=== PATIENT | female | born 1975 | race Caucasian/White ===

== ENCOUNTER 2016-06-12 11:21 | Emergency (ER) ==
[2016-06-12 11:33] VITALS: BP 136/82; TEMP 97.7; BMI 31.1
--- NOTE | 2016-06-12 11:37 | ED.PDOC ---
General ED Provider: Dr. TOMMY DOMÍNGUEZ JR Chief Complaint: Respiratory Complaint Stated Complaint: WOKE UP THIS MORNING COULD NOT BREATH, WAS WHEEZING. TOOK A HOT SHOWER CLOSED EYES TO WASH HAIR ROOM STARTED TO SPIN, FELL IN THE SHOWER. LANDED ON RIGHT RIB. TENDER TO TOUCH.[End]0900 97.7 88 24 98% 136/82 Time Seen by Physician: 11:36 Mode of Arrival: Walk-In Information Source: Patient, Family Exam Limitations: No limitations Primary Care Provider: MARIANNE PERRIN Nursing and Triage Documentation Reviewed and Agree: No Review of Systems - Review Of Systems Constitutional: Reports: No symptoms Eyes: Reports: No symptoms Ears, Nose, Mouth, Throat: Reports: No symptoms Respiratory: Reports: Wheezing Cardiac: Reports: Lightheadedness GI: Reports: No symptoms : Reports: No symptoms Musculoskeletal: Reports: Other Skin: Reports: No symptoms Neurological: Reports: Weakness (vertigo) Endocrine: Reports: No symptoms Hematologic/Lymphatic: Reports: No symptoms All Other Systems: Other Past Medical History - Past Medical History Previously Healthy: Yes Endocrine: Reports: None Cardiovascular: Reports: CAD, [place], Hypertension Respiratory: Reports: Asthma Hematological: Reports: None Gastrointestinal: Reports: None Genitourinary: Reports: None Neuro/Psych: Reports: Migraine, Anxiety, Depression Musculoskeletal: Reports: Arthritis, Back Pain, Joint Pain Cancer: Reports: None Last Menstrual Period: 2007 Other Pertinent Past Medical History: PRINZEMETALS - Surgical History General Surgical History: Reports: Hysterectomy (2007), Cholecystectomy, Tonsillectomy, Adenoidectomy, Orthopedic (LEFT ANKLE RESTABALIZATION) - Family History Family History: Reports: Unknown - Social History Smoking Status: Former smoker Hx Substance Use: No Alcohol Screening: None - Immunizations Tetanus Shot up to Date: Yes Physical Exam - Physical Exam Appearance: Ill-appearing, Thin Ill-appearing: Mild Pain Distress: Mild Eyes: [place], EOMI, Conjunctiva clear ENT: Ears normal, Nose normal, Oropharynx normal Neck: Supple Respiratory: Airway patent, Rhonchi, Wheezes Cardiovascular: RRR, Pulses normal, No rub, No murmur GI/: Soft, Nontender, No masses, Bowel sounds normal, No Organomegaly Musculoskeletal: Normal strength, ROM intact, No edema, No calf tenderness Skin: Warm, Dry, Normal color Neurological: Sensation intact, Motor intact, Reflexes intact, Cranial nerves intact, Alert, Oriented Psychiatric: Affect appropriate, Mood appropriate Interpretation - Radiology Interpretation Radiology Interpretation By: Radiologist Radiology Results: Negative Exam Interpreted: CXR, Other (ribs) Critical Care Note - Critical Care Note Total Time (mins): 5 Course - Course Orders, Labs, Meds: Orders Category Date Time Status NEBULIZER TREATMENT Stat CARDIO 06/12/16 11:47 Ordered PEAK FLOW Routine CARDIO 06/12/16 11:48 Ordered Ipratropium/Albuterol Neb [Duoneb] MEDS 06/12/16 11:47 Discontinued 1 vial NEB ONCE STA Methylprednisolone Sod Succ/Pf [Solu-Medrol 125 mg] MEDS 06/12/16 11:49 Discontinued 125 mg .ROUTE .STK-MED ONE Methylprednisolone Sod Succ/Pf [Solu-Medrol 125 mg] MEDS 06/12/16 11:47 Discontinued 125 mg IM ONCE STA CHEST, 2 VIEWS PA & LAT Stat RADS 06/12/16 11:38 Completed RIBS, UNILATERAL RIGHT Stat RADS 06/12/16 11:41 Completed Medications Discontinued Medications Generic Name Dose Route Start Last Admin Trade Name Diego PRN Reason Stop Dose Admin Albuterol/Ipratropium 1 vial 06/12/16 11:47 Duoneb NEB 06/12/16 11:48 ONCE STA Methylprednisolone Sodium Succinate 125 mg 06/12/16 11:47 06/12/16 11:53 Solu-Medrol 125 Mg IM 06/12/16 11:48 125 mg ONCE STA Administration Vital Signs: Temp Pulse Resp BP Pulse Ox 06/12/16 11:23 97.7 F 88 24 136/82 98 Departure - Departure Time of Disposition: 12:20 Disposition: HOME SELF-CARE Discharge Problem: COPD exacerbation Instructions: COPD (Chronic Obstructive Pulmonary Disease) (ED) Condition: Good Pt referred to PMD for follow-up: Yes Additional Instructions: recommend check peak flows daily you were given solumedrol injection atrovent MDI twice a day in addition to albuterol(use albuterol first) follow up with PMD recheck one week, sooner if not resolved Prescriptions: Ipratropium [place] [Atrovent Hfa] 2 puff IH BID #1 hfa.aer.ad Allergies/Adverse Reactions: Allergies ceftriaxone sodium [From Rocephin] Adverse Reaction (Verified 06/12/16 11:36) ITCHY, SWELLING, BREATHING PROBLEMS Home Medications: Ambulatory Orders Gabapentin [Neurontin] 300 mg PO DAILY 11/21/12 Budesonide/Formoterol Fumarate [Symbicort 80-4.5 Mcg Inhaler] 10.2 gm IH BID #7 hfa.aer.ad 01/12/15 Albuterol Sulfate [Proventil Hfa] 6.7 gm IH QID PRN #1 hfa.aer.ad 10/12/15 Cetirizine HCl [Zyrtec] 10 mg PO DAILY 12/13/15 Ipratropium [place] [Atrovent Hfa] 2 puff IH BID #1 hfa.aer.ad 06/12/16
[2016-06-12] MEDS ORDERED: DUONEB NEB STA (11:47)
[2016-06-12] MEDS ORDERED: SOLU-MEDROL 125 MG IM STA (11:47)
[2016-06-12] MEDS ORDERED: SOLU-MEDROL 125 MG ONE (11:49)
--- NOTE | 2016-06-12 12:00 | DI ---
EXAM: Radiographs, right rib HISTORY: Initial presentation for right 10-11 lateral rib pain following a fall. COMPARISON: Chest radiograph 05/16/2016. TECHNIQUE: Three views. FINDINGS/IMPRESSION: No right rib fracture identified. Right lung is clear without pleural effusion or pneumothorax.
--- NOTE | 2016-06-12 12:00 | DI ---
EXAM: Chest two view, frontal and lateral views. HISTORY: Shortness of breath. Wheezing. COMPARISON: 05/16/2016. FINDINGS: The heart size is normal. There is no pulmonary vascular congestion. The lungs are ze r. No pleural effusion or pneumothorax is seen. No acute osseous abnormality identified. Cholecys tectomy clips noted. Since the prior study, there has been no significant interval change. IMPRESSION: No acute cardiopulmonary process.
== END 2016-06-12 12:42 | disposition home or self-care (01) ==
LOC: ED 11:21
DX: J44.1 Chronic obstructive pulmonary disease with (acute) exacerbation (principal); S29.9XXA Unspecified injury of thorax, initial encounter; W19.XXXA Unspecified fall, initial encounter; Y93.E1 Activity, personal bathing and showering; Y92.9 Unspecified place or not applicable
CPT/HCPCS: 94250; 94640; 96372; 99282

== ENCOUNTER 2016-06-25 15:27 | Emergency (ER) ==
[2016-06-25] MEDS ORDERED: DUONEB NEB STA ×2 (15:30→16:06)
[2016-06-25] MEDS ORDERED: SOLU-MEDROL 125 MG IVP STA (15:30)
[2016-06-25] MEDS ORDERED: DUONEB NEB ONE (15:32)
[2016-06-25 15:34] VITALS: BP 156/115; TEMP 99; BMI 32.0
[2016-06-25 15:37] LABS: BASOPHILS % (AUTO) 0.4 % (0.0-3.0); EOSINOPHILS # (AUTO) 0.3 K/ul (0.0-0.7); EOSINOPHILS % (AUTO) 3.3 % (0.0-7.0); HEMATOCRIT 43.5 % (37.0-47.0); HEMOGLOBIN 15.3 g/dl (12.0-16.0); IMMATURE GRANULOCYTE % (AUTO) 0.2 % (0.0-5.0); LYMPHOCYTES # (AUTO) 2.8 K/uL (0.60-3.4); LYMPHOCYTES % (AUTO) 28.4 (10.0-50.0); MEAN CORPUSCULAR HEMOGLOBIN 32.3 pg (27.0-31.0); MEAN CORPUSCULAR HGB CONC 35.2 (31.8-35.4); MONOCYTES # (AUTO) 0.5 K/uL (0.4-2.0); MONOCYTES % (AUTO) 4.8 (0-10); NEUTROPHILS # (AUTO) 6.3 K/ul (2.0-6.9); NEUTROPHILS % (AUTO) 62.9; PLATELET COUNT 254 10^3/uL (140-440); RED BLOOD COUNT 4.73 10^6/ul (4.20-5.40)
--- NOTE | 2016-06-25 16:03 | DI ---
EXAM: Chest one view HISTORY: Short of air COMPARISON: 06/12/2016 TECHNIQUE: Single view of the chest was performed FINDINGS: The lungs are clear. There is no pleural effusion or pneumothorax. The heart is normal in size. The mediastinal contour is normal. There are no acute abnormalities of the bones. IMPRESSION: No acute cardiopulmonary process.
[2016-06-25 16:04] LABS: ALANINE AMINOTRANSFERASE 16 U/L (12-78); ALBUMIN 3.9 g/dL (3.4-5.0); ALKALINE PHOSPHATASE 88 U/L (42-98); ASPARTATE AMINO TRANSFERASE 17 U/L (15-37); BILIRUBIN,TOTAL 0.32 mg/dL (0.00-1.20); BLOOD UREA NITROGEN 17 mg/dL (7-18); BUN/CREATININE RATIO 20.98; CALCIUM 9.2 mg/dL (8.2-10.2); CARBON DIOXIDE 25 mmol/L (21-32); CHLORIDE 108 mmol/L (98-107); CREATINE KINASE 19 U/L; CREATININE 0.81 mg/dL (0.60-1.30); GLUCOSE 107 mg/dL (70-110); SODIUM 142 mmol/L (136-145); TOTAL PROTEIN 6.9 g/dL (6.4-8.2)
[2016-06-25 17:17] LABS: FLU INTERNAL QC INTERNAL QC VALID; RAPID FLU A NEGATIVE (NEGATIVE); RAPID FLU B NEGATIVE (NEGATIVE)
--- NOTE | 2016-06-25 17:34 | ED.PDOC ---
General ED Provider: Dr. IRAIS DUNLAP Chief Complaint: Respiratory Complaint Stated Complaint: cough, wheez Time Seen by Physician: 15:33 (has had amoxicllin with no issues in the past) Mode of Arrival: Walk-In Information Source: Patient Exam Limitations: No limitations Primary Care Provider: MARIANNE PERRIN Nursing and Triage Documentation Reviewed and Agree: Yes Respiratory Complaint Exam - Respiratory Complaint/Exam Onset/Duration: 1 day Symptoms Are: Still present Timing: Intermittent Initial Severity: Moderate Current Severity: Mild Location: Chest Character: Reports: Non-productive cough Aggravating: Reports: None Alleviating: Reports: Bronchodilators, Spontaneous resolution Associated Signs and Symptoms: Denies: Rapid breathing, Dyspnea, Fever, Chills, Chest pain, Pleuritic chest pain, Wheezing, Hemoptysis, Dizziness, Calf pain, Calf swelling, Edema, URI, Nasal congestion, Hoarseness, Sinus discomfort, Vomiting, Sore throat, Weight loss, Decreased oral intake, Increased thirst, Increased appetite, Increased urination Related History: Reports: Similar episode History of Healthcare-Acquired Pneumonia: No Related Surgical History: Reports: None Pulmonary Embolism Risk Factors: None Cardiac Risk Factors: Reports: Hypertension Pseudomonas Risk Factors: Reports: None Tuberculosis Risk Factors: Reports: None Status Asthmaticus Risk Factors: Reports: None Home Oxygen Use: No Recent Stress Test: No Recent Echo/LV Function: No Current Antibiotic Use: No Current Asthma Medication Use: No Respiratory Distress: None Inadequate Respiratory Effort: No Dysphagia Present: No Stridor Present: No JVD Present: No Accessory Muscle Use: No Retractions: Not Present Diminished Breath Sounds: No Sinus Tenderness: None Grunting Respirations: No Kussmaul Respirations: No Differential Diagnoses: COPD Exacerbation, Pneumonia, Bronchitis Review of Systems - Review Of Systems Constitutional: Reports: No symptoms Eyes: Reports: No symptoms Ears, Nose, Mouth, Throat: Reports: No symptoms Respiratory: Reports: Cough, Wheezing Cardiac: Reports: No symptoms GI: Reports: No symptoms : Reports: No symptoms Musculoskeletal: Reports: No symptoms Skin: Reports: No symptoms Neurological: Reports: No symptoms Endocrine: Reports: No symptoms Hematologic/Lymphatic: Reports: No symptoms All Other Systems: Reviewed and Negative Past Medical History - Past Medical History Previously Healthy: Yes Endocrine: Reports: None Cardiovascular: Reports: CAD, [place], Hypertension Respiratory: Reports: Asthma Hematological: Reports: None Gastrointestinal: Reports: None Genitourinary: Reports: None Neuro/Psych: Reports: Migraine, Anxiety, Depression Musculoskeletal: Reports: Arthritis, Back Pain, Joint Pain Cancer: Reports: None Last Menstrual Period: 2007 Other Pertinent Past Medical History: PRINZEMETALS - Surgical History General Surgical History: Reports: Hysterectomy (2007), Cholecystectomy, Tonsillectomy, Adenoidectomy, Orthopedic (LEFT ANKLE RESTABALIZATION) - Family History Family History: Reports: Unknown - Social History Smoking Status: Former smoker Hx Substance Use: No Alcohol Screening: None - Immunizations Tetanus Shot up to Date: Yes Physical Exam - Physical Exam Appearance: Well-appearing, No pain distress, Well-nourished Eyes: [place], EOMI, Conjunctiva clear ENT: Ears normal, Nose normal, Oropharynx normal Respiratory: Wheezes Cardiovascular: RRR, Pulses normal, No rub, No murmur GI/: Soft, Nontender, No masses, Bowel sounds normal, No Organomegaly Musculoskeletal: Normal strength, ROM intact, No edema, No calf tenderness Skin: Warm, Dry, Normal color Neurological: Sensation intact, Motor intact, Reflexes intact, Cranial nerves intact, Alert, Oriented Psychiatric: Affect appropriate, Mood appropriate Interpretation - Radiology Interpretation Radiology Interpretation By: Radiologist Radiology Results: No acute changes - Income Tax Consultant Rate: Normal Rhythm: Sinus - EKG Interpretation Rate: Normal Rhythm: Sinus Ectopy: None [place]: NL ST Segment: Normal Re-Evaluation - Re-Evaluation Time of Re-Evaluation: 16:00 Status: Improved Vital Signs Stable: Yes Pain Level: 0 Appearance: NAD Lungs: Clear Skin: Warm and Dry Neuro: Alert and Oriented X3 CV: RRR - Re-Evaluation Time of Re-Evaluation: 17:34 Status: Improved Vital Signs Stable: Yes Pain Level: 0 Appearance: NAD Skin: Warm and Dry Neuro: Alert and Oriented X3 CV: RRR (no further wheezing noted pt eager to go home) Critical Care Note - Critical Care Note Total Time (mins): 0 Course - Course Hematology/Chemistry: 06/25/16 15:35 06/25/16 15:35 Orders, Labs, Meds: Lab Review 06/25/16 06/25/16 15:35 16:20 WBC 10.00 RBC 4.73 Hgb 15.3 Hct 43.5 MCV 92.0 MCH 32.3 H MCHC 35.2 RDW Coeff of Gregorio 12.4 Plt Count 254 Immature Gran % (Auto) 0.2 Neut % (Auto) 62.9 Lymph % (Auto) 28.4 [place] % (Auto) 4.8 Eos % (Auto) 3.3 Baso % (Auto) 0.4 Immature Gran # (Auto) 0.0 Neut # 6.3 Lymph # 2.8 [place] # 0.5 Eos # 0.3 Baso # 0.0 D-Dimer < 0.19 L Sodium 142 Potassium 4.0 Chloride 108 H Carbon Dioxide 25 Anion Gap 13.0 BUN 17 Creatinine 0.81 Estimated GFR (MDRD) 79.00 BUN/Creatinine Ratio 20.98 Glucose 107 Calcium 9.2 Total Bilirubin 0.32 AST 17 ALT 16 Alkaline Phosphatase 88 Total Creatine Kinase 19 Troponin I < 0.0100 B-Natriuretic Peptide 11 Total Protein 6.9 Albumin 3.9 Globulin 3.0 Albumin/Globulin Ratio 1.30 Influenza A (Rapid) Negative Influenza B (Rapid) Negative Orders Category Date Time Status EKG-(ED ONLY) Stat CARDIO 06/25/16 15:29 Completed NEBULIZER TREATMENT Stat CARDIO 06/25/16 15:30 Completed NEBULIZER TREATMENT Stat CARDIO 06/25/16 16:06 Completed ED IV/MEDIPORT/POWERPORT .ONCE EMERGENCY 06/25/16 15:30 Active B-TYPE NATRIURETIC PEPTIDE Stat LAB 06/25/16 15:35 Completed CBC W/ AUTO DIFF Stat LAB 06/25/16 15:35 Completed COMPREHENSIVE METABOLIC PANEL Stat LAB 06/25/16 15:35 Completed CREATINE KINASE Stat LAB 06/25/16 15:35 Completed D-DIMER Stat LAB 06/25/16 15:35 Completed MOLECULAR GROUP A STREP Stat LAB 06/25/16 16:20 Results RAPID FLU A/B Stat LAB 06/25/16 16:20 Completed STREP SCREEN Stat LAB 06/25/16 16:20 Results TROPONIN I Stat LAB 06/25/16 15:35 Completed 0.9 % Sodium Chloride [Saline Flush] MEDS 06/25/16 15:30 Active 1 syr IVF PRN PRN Ipratropium/Albuterol Neb [Duoneb] MEDS 06/25/16 15:32 Discontinued 1 vial NEB .STK-MED ONE Ipratropium/Albuterol Neb [Duoneb] MEDS 06/25/16 15:30 Discontinued 1 vial NEB ONCE STA Ipratropium/Albuterol Neb [Duoneb] MEDS 06/25/16 16:06 Discontinued 1 vial NEB ONCE STA Methylprednisolone Sod Succ/Pf [Solu-Medrol 125 mg] MEDS 06/25/16 15:30 Discontinued 125 mg IVP ONCE STA CHEST, 1V AP ONLY Stat RADS 06/25/16 15:29 Completed Medications Generic Name Dose Route Start Last Admin Trade Name Freq PRN Reason Stop Dose Admin Sodium Chloride 1 syr 06/25/16 15:30 06/25/16 15:42 Saline Flush IVF 1 syr PRN PRN Administration To flush IV Discontinued Medications Generic Name Dose Route Start Last Admin Trade Name Freq PRN Reason Stop Dose Admin Albuterol/Ipratropium 1 vial 06/25/16 15:30 06/25/16 16:12 Duoneb NEB 06/25/16 15:31 Not Given ONCE STA Albuterol/Ipratropium 1 vial 06/25/16 16:06 06/25/16 16:10 Duoneb NEB 06/25/16 16:07 1 vial ONCE STA Administration Methylprednisolone Sodium Succinate 125 mg 06/25/16 15:30 06/25/16 15:41 Solu-Medrol 125 Mg IVP 06/25/16 15:31 125 mg ONCE STA Administration Vital Signs: Temp Pulse Resp BP Pulse Ox 06/25/16 15:28 99.0 F 106 H 32 H 156/115 H 96 Departure - Departure Time of Disposition: 17:35 Disposition: HOME SELF-CARE Discharge Problem: Cough, Bronchitis Instructions: Acute Bronchitis (ED), Wheezing (ED), Bronchospasm (ED), How Your Lungs Work (ED) Condition: Good Pt referred to PMD for follow-up: No Additional Instructions: Please call your Family Physician as soon as possible to schedule a follow-up appointment. Prescriptions: Amoxicillin 500 mg PO Q6HR #30 tablet Amoxicillin 500 mg PO Q8HR #21 tablet Acetaminophen with Codeine [Tylenol/Codeine Elixir 120/12 mg/5 ml] 10 ml PO QID PRN #200 ml PRN Reason: PAIN Methylprednisolone [Medrol Dosepak] 4 mg PO DIRECTED #1 pkg Allergies/Adverse Reactions: Allergies ceftriaxone sodium [From Rocephin] Adverse Reaction (Verified 06/12/16 11:36) ITCHY, SWELLING, BREATHING PROBLEMS Home Medications: Ambulatory Orders Gabapentin [Neurontin] 300 mg PO DAILY 11/21/12 Budesonide/Formoterol Fumarate [Symbicort 80-4.5 Mcg Inhaler] 10.2 gm IH BID #7 hfa.aer.ad 01/12/15 Albuterol Sulfate [Proventil Hfa] 6.7 gm IH QID PRN #1 hfa.aer.ad 10/12/15 Cetirizine HCl [Zyrtec] 10 mg PO DAILY 12/13/15 Ipratropium [place] [Atrovent Hfa] 2 puff IH BID #1 hfa.aer.ad 06/12/16 Acetaminophen with Codeine [Tylenol/Codeine Elixir 120/12 mg/5 ml] 10 ml PO QID PRN #200 ml 06/25/16 Amoxicillin 500 mg PO Q6HR #30 tablet 06/25/16 Amoxicillin 500 mg PO Q8HR #21 tablet 06/25/16 Methylprednisolone [Medrol Dosepak] 4 mg PO DIRECTED #1 pkg 06/25/16 Disposition Discussed With: Patient
== END 2016-06-25 17:51 | disposition home or self-care (01) ==
LOC: ED 15:27
DX: J20.9 Acute bronchitis, unspecified (principal); I10 Essential (primary) hypertension; I25.10 Atherosclerotic heart disease of native coronary artery without angina pectoris; I25.2 Old myocardial infarction; Z79.899 Other long term (current) drug therapy
CPT/HCPCS: 36415; 80053; 82550; 83880; 84484; 85025; 85379; 87651; 87804; 87880; 93005; 93010; 94640; 96374; 99283

== ENCOUNTER 2016-12-04 20:20 | Emergency (ER) ==
[2016-12-04 20:21] VITALS: BMI 32.0
[2016-12-04 20:30] VITALS: BP 157/85; TEMP 97.8
--- NOTE | 2016-12-04 20:35 | ED.PDOC ---
General ED Provider: Dr. DEYANIRA CORREA-ER Chief Complaint: Hand Pain/Injury Stated Complaint: my dog went after a squirrel and the leash wrapped about my finger and it popped Time Seen by Physician: 20:25 Mode of Arrival: Walk-In Information Source: Patient Exam Limitations: No limitations Primary Care Provider: MARIANNE PERRIN Nursing and Triage Documentation Reviewed and Agree: Yes Musculoskeletal Complaint Exam - Hand/Wrist Complaint/Exam Location of Pain: Reports: Left, Digit #4 Mechanism of Injury: Reports: Trauma Onset/Duration: 30min Symptoms Are: Still present Onset of Pain: Reports: Immediate Initial Severity: Mild Current Severity: Mild Location: Reports: Discrete (left ring finger) Character: Reports: Dull, Aching Aggravating: Reports: Movement Associated Signs and Symptoms: Reports: Swelling, Bruising. Denies: Redness, Fever, Weakness, Numbness, Tingling Hand/Wrist Findings: Present: Swelling, Ecchymosis Tenderness: Present: Phalanx Compartment Syndrome Risk Factors: Present: Pain. Absent: Paralysis, Pallor, Pulselessness, Paresthesias Differential Diagnoses: Closed Fracture, Sprain, Strain Review of Systems - Review Of Systems Constitutional: Reports: No symptoms Eyes: Reports: No symptoms Ears, Nose, Mouth, Throat: Reports: No symptoms Respiratory: Reports: No symptoms Cardiac: Reports: No symptoms GI: Reports: No symptoms : Reports: No symptoms Musculoskeletal: Reports: No symptoms Skin: Reports: No symptoms Neurological: Reports: No symptoms Endocrine: Reports: No symptoms Hematologic/Lymphatic: Reports: No symptoms All Other Systems: Reviewed and Negative Past Medical History - Past Medical History Previously Healthy: Yes Endocrine: Reports: None Cardiovascular: Reports: CAD, [place], Hypertension Respiratory: Reports: Asthma Hematological: Reports: None Gastrointestinal: Reports: None Genitourinary: Reports: None Neuro/Psych: Reports: Migraine, Anxiety, Depression Musculoskeletal: Reports: Arthritis, Back Pain, Joint Pain Cancer: Reports: None Last Menstrual Period: HYSTERECTOMY Other Pertinent Past Medical History: PRINZEMETALS - Surgical History General Surgical History: Reports: Hysterectomy (2007), Cholecystectomy, Tonsillectomy, Adenoidectomy, Orthopedic (LEFT ANKLE RESTABALIZATION) - Family History Family History: Reports: Unknown - Social History Smoking Status: Former smoker Hx Substance Use: No Alcohol Screening: None - Immunizations Tetanus Shot up to Date: Yes Physical Exam - Physical Exam Appearance: Well-appearing, No pain distress, Well-nourished Pain Distress: Mild Eyes: [place] ENT: Ears normal, Nose normal, Oropharynx normal Neck: Supple Respiratory: Airway patent, Breath sounds clear, Breath sounds equal, Respirations nonlabored Cardiovascular: RRR, Pulses normal, No rub, No murmur GI/: Soft, Nontender, No masses, Bowel sounds normal, No Organomegaly Musculoskeletal: Limited ROM Skin: Warm, Dry, Normal color Neurological: Sensation intact, Motor intact, Reflexes intact, Cranial nerves intact, Alert, Oriented Psychiatric: Affect appropriate, Mood appropriate Interpretation - Radiology Interpretation Radiology Interpretation By: ED Physician Radiology Results: Negative Procedures - Splinting Location: left ring finger Pre-Made Type: Metal Splint: Sugar-tong Pre-Proc Neuro Vasc Exam: Normal Post-Proc Neuro Vasc Exam: Normal Critical Care Note - Critical Care Note Total Time (mins): 0 Course - Course Orders, Labs, Meds: Orders Category Date Time Status Splint [ED SPLINT APPLICATION] .ONCE EMERGENCY 12/04/16 20:56 Active Hydrocodone Bit/Acetaminophen [[place] 5-325] MEDS 12/04/16 20:57 Stat 1 tab PO ONCE STA FINGER(S), LEFT MIN 2V Stat RADS 12/04/16 20:32 Ordered Vital Signs: Temp Pulse Resp BP Pulse Ox 12/04/16 20:21 97.8 F 105 H 20 157/85 H 99 Departure - Departure Time of Disposition: 20:58 Disposition: HOME SELF-CARE Discharge Problem: Sprain, finger Qualifiers: Encounter type: initial encounter Finger: ring finger Sprain of finger site: unspecified site Laterality: left Qualifier Code: (S63.615A) Unspecified sprain of left ring finger, initial encounter Instructions: Finger Sprain (ED) Condition: Good Pt referred to PMD for follow-up: Yes Additional Instructions: stay in splint--ice--norco 5mg q 4hrs prn pain #10--f/u wtih pcp Allergies/Adverse Reactions: Allergies ceftriaxone sodium [From Rocephin] Adverse Reaction (Verified 12/04/16 20:28) ITCHY, SWELLING, BREATHING PROBLEMS Home Medications: Ambulatory Orders Gabapentin [Neurontin] 300 mg PO DAILY 11/21/12 Budesonide/Formoterol Fumarate [Symbicort 80-4.5 Mcg Inhaler] 10.2 gm IH BID #7 hfa.aer.ad 01/12/15 Albuterol Sulfate [Proventil Hfa] 6.7 gm IH QID PRN #1 hfa.aer.ad 10/12/15 Cetirizine HCl [Zyrtec] 10 mg PO DAILY 12/13/15 Ipratropium [place] [Atrovent Hfa] 2 puff IH BID #1 hfa.aer.ad 06/12/16 Disposition Discussed With: Patient
[2016-12-04] MEDS ORDERED: NORCO 5-325 PO STA (20:57)
--- NOTE | 2016-12-05 07:28 | DI ---
Exam: Four x-rays of the left fourth digit. Comparison: 02/20/2009. Reason for exam: Trauma to ring finger. FINDINGS: No acute fracture or malalignment. The cortex appears intact. The joint spaces are well maintained. No unexplained calcific soft tissue densities or radiopaque retained foreign bodies. Impression: No acute fracture or malalignment in the left fourth digit.
== END 2016-12-04 21:11 | disposition home or self-care (01) ==
LOC: ED 20:20
DX: S63.615A Unspecified sprain of left ring finger, initial encounter (principal); X50.1XXA Overexertion from prolonged static or awkward postures, initial encounter
CPT/HCPCS: 99283

== ENCOUNTER 2017-01-10 19:14 | Emergency (ER) ==
[2017-01-10 19:22] VITALS: BP 163/93; TEMP 98.5; BMI 34.7
[2017-01-10] MEDS ORDERED: NORCO 7.5-325 PO STA (19:45)
--- NOTE | 2017-01-10 19:46 | ED.PDOC ---
General ED Provider: Dr. DESHAUN MC Chief Complaint: Finger Pain/Injury Stated Complaint: Pain left 4th digit. Fell climbing down into [place] bed et fell. Has injured same finger a month ago when her dog injured it with a leash. Has been wearing a finger brace since original injury. Time Seen by Physician: 19:43 Mode of Arrival: Walk-In Information Source: Patient Primary Care Provider: MARIANNE PERRIN Nursing and Triage Documentation Reviewed and Agree: Yes Musculoskeletal Complaint Exam - Hand/Wrist Complaint/Exam Location of Pain: Reports: Left, Hand, Digit #4 Mechanism of Injury: Reports: Trauma Onset/Duration: 6 hours Symptoms Are: Still present Onset of Pain: Reports: Immediate, Post accident Initial Severity: Severe Current Severity: Severe Location: Reports: Diffuse Character: Reports: Aching, Throbbing Alleviating: Reports: None Aggravating: Reports: Movement Associated Signs and Symptoms: Denies: Swelling, Redness, Bruising, Fever, Weakness, Numbness, Tingling Related History: Reports: Similar episode (one month ago had injury) Dominant Hand: Right Related Surgical History: Reports: None Hand/Wrist Findings: Present: Swelling Tenderness: Present: Metacarpal, Phalanx Hand Picture: 1 - tenderness to palpation. Limited range of motion ( but has had limitation for one month) Differential Diagnoses: Closed Fracture, Sprain, Strain, Tendonitis Review of Systems - Review Of Systems Constitutional: Reports: No symptoms Eyes: Reports: No symptoms Ears, Nose, Mouth, Throat: Reports: No symptoms Respiratory: Reports: No symptoms Cardiac: Reports: No symptoms GI: Reports: No symptoms : Reports: No symptoms Musculoskeletal: Reports: Joint pain Skin: Reports: No symptoms Neurological: Reports: Anxiety Endocrine: Reports: No symptoms Hematologic/Lymphatic: Reports: No symptoms All Other Systems: Reviewed and Negative Past Medical History - Past Medical History Previously Healthy: Yes Endocrine: Reports: None Cardiovascular: Reports: CAD, [place], Hypertension Respiratory: Reports: Asthma Hematological: Reports: None Gastrointestinal: Reports: None Genitourinary: Reports: None Neuro/Psych: Reports: Migraine, Anxiety, Depression Musculoskeletal: Reports: Arthritis, Back Pain, Joint Pain Cancer: Reports: None Last Menstrual Period: hysterectomy Other Pertinent Past Medical History: PRINZEMETALS - Surgical History General Surgical History: Reports: Hysterectomy (2007), Cholecystectomy, Tonsillectomy, Adenoidectomy, Orthopedic (LEFT ANKLE RESTABALIZATION) - Family History Family History: Reports: Unknown - Social History Smoking Status: Current every day smoker, Light tobacco smoker Hx Substance Use: No Alcohol Screening: None Physical Exam - Physical Exam Appearance: Ill-appearing, Obese Pain Distress: Moderate Neck: Supple Respiratory: Airway patent, Breath sounds clear, Breath sounds equal, Respirations nonlabored Cardiovascular: RRR Musculoskeletal: Limited ROM Skin: Warm, Dry, Normal color Neurological: Sensation intact, Alert, Oriented Psychiatric: Anxious Critical Care Note - Critical Care Note Total Time (mins): 0 Course - Course Orders, Labs, Meds: Orders Category Date Time Status Splint [ED SPLINT APPLICATION] .ONCE EMERGENCY 01/10/17 21:00 Active Hydrocodone Bit/Acetaminophen [[place] 7.5-325] MEDS 01/10/17 19:45 Discontinued 1 tab PO ONCE STA HAND, LEFT 3 VIEWS Stat RADS 01/10/17 19:45 Taken Medications Discontinued Medications Generic Name Dose Route Start Last Admin Trade Name Freq PRN Reason Stop Dose Admin Acetaminophen/Hydrocodone Bitart 1 tab 01/10/17 19:45 01/10/17 19:54 [place] 7.5-325 PO 01/10/17 19:46 1 tab ONCE STA Administration Vital Signs: Temp Pulse Resp BP Pulse Ox 01/10/17 19:14 98.5 F 104 H 20 163/93 H 98 Departure - Departure Time of Disposition: 21:01 Disposition: HOME SELF-CARE Discharge Problem: Injury of finger, Pain in finger Instructions: Finger Sprain (ED) Condition: Fair Pt referred to PMD for follow-up: Yes Additional Instructions: Follow up with PCP in 2 days for Orthopedic referral. Take pain medications as prescribed Use splint until seen by ortho. Prescriptions: Hydrocodone/Acetaminophen [[place] 5-325 Tablet] 1 tab PO Q6HR PRN #12 tablet PRN Reason: PAIN Ibuprofen [Motrin] 600 mg PO Q6H PRN #30 tablet PRN Reason: Analgesia Allergies/Adverse Reactions: Allergies ceftriaxone sodium [From Rocephin] Adverse Reaction (Verified 01/10/17 19:21) ITCHY, SWELLING, BREATHING PROBLEMS Home Medications: Ambulatory Orders Albuterol Sulfate [Proventil Hfa] 6.7 gm IH QID PRN #1 hfa.aer.ad 10/12/15 Hydrocodone/Acetaminophen [[place] 5-325 Tablet] 1 tab PO Q6HR PRN #12 tablet Ibuprofen [Motrin] 600 mg PO Q6H PRN #30 tablet 01/10/17 Disposition Discussed With: Patient
--- NOTE | 2017-01-11 11:28 | DI ---
EXAM: Left hand three view HISTORY: Left hand pain COMPARISON: None available at the time of dictation. FINDINGS: No definitive left hand acute fracture or dislocation is identified. Joint spaces appear preserved. No definitive soft tissue radiodense foreign bodies are identified. There is negative ulnar varianc e. IMPRESSION: No left hand acute fracture or dislocation identified.
== END 2017-01-10 21:14 | disposition home or self-care (01) ==
LOC: ED 19:14
DX: M79.645 Pain in left finger(s) (principal); W17.81XA Fall down embankment (hill), initial encounter; F17.210 Nicotine dependence, cigarettes, uncomplicated
CPT/HCPCS: 99282

== ENCOUNTER 2017-01-22 08:37 | Outpatient (CLI) ==
[2012-11-21 16:49] VITALS: TEMP 98.8
--- NOTE | 2017-01-22 10:52 | MRI ---
EXAM: MRI left hand without contrast. HISTORY: Nonspecific hand, wrist, finger pain. Prior reported history of trauma to left ring finge r. Got twisted up in dog cable. TECHNIQUE: Using a local coil on a high field strength magnet multiplanar multisequence large field of view imaging obtained through the level of the left hand without intravenous or intra-articular gadolinium contrast. . COMPARISON: Three-view plain film examination left ring finger 12/04/2016. Three-view plain film e xamination left hand 01/10/2017. FINDINGS: Alignment of the left hand shows some slight radial subluxation first metacarpal with res pect to the trapezium. Some slight negative ulnar variance.. There is additionally some mild intra medullary bone marrow edema throughout the lunate. Otherwise normal limit in morphology. Trace metacarpal-phalangeal joint effusions. In correlation with plain film radiographs 01/10/2017 there is nonspecific periarticular osteopenia.. Specifically the dorsal extensor and palmar flexor tendons of the left hand grossly intact without full-thickness disruption. There is some soft tissu e edema/swelling over the more palmar soft tissues of the left index finger over the level of the mi ddle phalanx. Some mild tenosynovitis involving the fourth flexor tendons more proximal The exit of the carpal tunnel within normal limit in appearance. Visualized muscle bulk of normal s ignal intensity. Approximate 20 mm wide fluid signal intensity collection over the more volar to ra dial deep soft tissues at the radiocarpal joint space level.. IMPRESSION: No acute fracture left hand / left ring finger. Slight radial subluxation first metacarpal with respect to the trapezium. Slight negative ulnar gayla iance. Mild intramedullary bone marrow edema throughout the lunate. Differential diagnosis might i nclude early stage avascular necrosis. Correlate clinically. Trace metacarpal-phalangeal joint effusions. Nonspecific periarticular osteopenia. Soft tissue swelling/edema over the more palmar soft tissues of the left index finger over the level of the middle phalanx. Correlate clinically. Mild tenosynovitis involving the fourth flexor tendo ns more proximal.. 20 mm question synovial/ganglion cyst/prominent volar radial recess at the carpus.
== END 2017-01-22 08:38 | disposition home or self-care (01) ==
LOC: RAD 08:37
PROVIDERS: ATTEND Physician Assistant
DX: S69.80XA Other specified injuries of unspecified wrist, hand and finger(s), initial encounter (principal)

== ENCOUNTER 2017-04-20 20:31 | Emergency (ER) ==
[2017-04-20 20:37] VITALS: BMI 36.6
[2017-04-20] MEDS ORDERED: SOLU-MEDROL 125 MG IVP STA (20:50)
[2017-04-20] MEDS ORDERED: DUONEB NEB STA ×2 (20:50→21:41)
--- NOTE | 2017-04-20 20:51 | ED.PDOC ---
General ED Provider: Dr. DESHAUN MC Chief Complaint: Cough Stated Complaint: Karrieeint is a 42 year old female who comes to the ER with Chest congestion, productive cough, thick white/green phlegm with Wheezing. States it has been going on for about one week thinks it is going down to the her chest. She states she is out of her Pro air and has not seen her PCP in months. Thinks her Medical card has . Time Seen by Physician: 20:40 Mode of Arrival: Walk-In Information Source: Patient Exam Limitations: No limitations Primary Care Provider: MARIANNE PERRIN Nursing and Triage Documentation Reviewed and Agree: Yes Respiratory Complaint Exam - Shortness of Air Complaint/Exam Onset/Duration: 1 weekl Symptoms Are: Still present Timing: Constant Initial Severity: Moderate Current Severity: Moderate Character: Reports: Dyspnea at rest Aggravating: Reports: Movement, URI, Weather Alleviating: Reports: None Associated Signs and Symptoms: Reports: Cough, Wheezing, Chest pain with cough Related History: Reports: Similar episode, Allergic reaction, Obesity Cardiac Risk Factors: Reports: None Pseudomonas Risk Factors: Reports: None Tuberculosis Risk Factors: Reports: None Home Oxygen Use: No Recent Stress Test: No Recent Echo/LV Function: No Respiratory Distress: Mild Stridor Present: No Tracheal Deviation: No Subcutaneous Emphysema: No Accessory Muscle Use: No Retractions: Not Present Diminished Breath Sounds: Yes Prolonged Expiratory Phase: No Unable to Speak Full Sentences: No Fatigue: No Leg Swelling: No Clovis's Sign Present: No Grunting Respirations: No Kussmaul Respirations: No Differential Diagnoses: COPD Exacerbation, Pneumonia, Bronchitis, URI Review of Systems - Review Of Systems Constitutional: Reports: Fever, Sweats, Loss of appetite Eyes: Reports: No symptoms Ears, Nose, Mouth, Throat: Reports: No symptoms Respiratory: Reports: Cough, Short of air, Wheezing Cardiac: Reports: Chest pain GI: Reports: No symptoms : Reports: No symptoms Musculoskeletal: Reports: No symptoms Skin: Reports: No symptoms Neurological: Reports: No symptoms Endocrine: Reports: No symptoms Hematologic/Lymphatic: Reports: No symptoms All Other Systems: Reviewed and Negative Past Medical History - Past Medical History Previously Healthy: Yes Endocrine: Reports: None Cardiovascular: Reports: CAD, [place], Hypertension Respiratory: Reports: Asthma Hematological: Reports: None Gastrointestinal: Reports: None Genitourinary: Reports: None Neuro/Psych: Reports: Migraine, Anxiety, Depression Musculoskeletal: Reports: Arthritis, Back Pain, Joint Pain Cancer: Reports: None Last Menstrual Period: hyst in 2006 Other Pertinent Past Medical History: PRINZEMETALS - Surgical History General Surgical History: Reports: Hysterectomy (2008), Cholecystectomy, Tonsillectomy, Adenoidectomy, Orthopedic (LEFT ANKLE RESTABALIZATION) - Family History Family History: Reports: Unknown - Social History Smoking Status: Current every day smoker, Light tobacco smoker Hx Substance Use: No Alcohol Screening: None - Immunizations Tetanus Shot up to Date: No Physical Exam - Physical Exam Appearance: Ill-appearing Eyes: SALVADOR, EOMI, Conjunctiva clear Neck: Supple Respiratory: Breath sounds diminished Cardiovascular: RRR, Pulses normal, No rub, No murmur GI/: Soft, Nontender, No masses, Bowel sounds normal, No Organomegaly Musculoskeletal: Normal strength, ROM intact, No edema, No calf tenderness Skin: Warm, Dry, Normal color Neurological: Sensation intact, Motor intact, Reflexes intact, Cranial nerves intact, Alert, Oriented Psychiatric: Anxious Critical Care Note - Critical Care Note Total Time (mins): 30 Course - Course Orders, Labs, Meds: Orders Category Date Time Status NEBULIZER TREATMENT Stat CARDIO 04/20/17 20:50 Completed NEBULIZER TREATMENT Stat CARDIO 04/20/17 21:41 Completed Ipratropium/Albuterol Neb [Duoneb] MEDS 04/20/17 20:50 Discontinued 1 vial NEB ONCE STA Ipratropium/Albuterol Neb [Duoneb] MEDS 04/20/17 21:41 Discontinued 1 vial NEB ONCE STA Methylprednisolone Sod Succ/Pf [Solu-Medrol 125 mg] MEDS 04/20/17 20:59 Discontinued 125 mg IM ONCE STA CHEST, 2 VIEWS PA & LAT Stat RADS 04/20/17 20:51 Completed Medications Discontinued Medications Generic Name Dose Route Start Last Admin Trade Name Freq PRN Reason Stop Dose Admin Albuterol/Ipratropium 1 vial 04/20/17 20:50 04/20/17 21:26 Duoneb NEB 04/20/17 20:51 1 vial ONCE STA Administration Albuterol/Ipratropium 1 vial 04/20/17 21:41 04/20/17 21:46 Duoneb NEB 04/20/17 21:42 1 vial ONCE STA Administration Methylprednisolone Sodium Succinate 125 mg 04/20/17 20:59 04/20/17 21:05 Solu-Medrol 125 Mg IM 04/20/17 21:00 125 mg ONCE STA Administration Vital Signs: Temp Pulse Resp BP Pulse Ox 04/20/17 21:55 98.2 F 99 H 20 150/90 H 97 04/20/17 20:32 98.3 F 102 H 20 165/116 H 96 Departure - Departure Time of Disposition: 22:01 Disposition: HOME SELF-CARE Discharge Problem: Bronchitis Asthma Qualifiers: Asthma severity: mild Asthma persistence: intermittent Asthma complication type : uncomplicated Qualified Code(s): J45.20 - Mild intermittent asthma, uncomplicated Instructions: Asthma (ED) Condition: Fair Pt referred to PMD for follow-up: Yes Additional Instructions: Follow up with PCP in 3 days stop Smoking Prescriptions: Albuterol Sulfate [Proair Hfa] 2 puff IH Q6H PRN #1 puff PRN Reason: Asthma Azithromycin [Zithromax] 250 mg PO DIRECTED #6 tablet Methylprednisolone [Medrol Dosepak] 4 mg PO DIRECTED #1 pkg Allergies/Adverse Reactions: Allergies ceftriaxone sodium [From Rocephin] Adverse Reaction (Verified 04/20/17 20:37) ITCHY, SWELLING, BREATHING PROBLEMS Home Medications: Ambulatory Orders Albuterol Sulfate [Proventil Hfa] 6.7 gm IH QID PRN #1 hfa.aer.ad 10/12/15 Ibuprofen [Motrin] 600 mg PO Q6H PRN #30 tablet 01/10/17 Albuterol Sulfate [Proair Hfa] 2 puff IH Q6H PRN #1 puff 04/20/17 Azithromycin [Zithromax] 250 mg PO DIRECTED #6 tablet 04/20/17 Methylprednisolone [Medrol Dosepak] 4 mg PO DIRECTED #1 pkg 04/20/17 Disposition Discussed With: Patient
[2017-04-20] MEDS ORDERED: SOLU-MEDROL 125 MG IM STA (20:59)
[2017-04-21 02:00] VITALS: BP 150/90; TEMP 98.2
--- NOTE | 2017-04-21 07:37 | DI ---
EXAM: CHEST FRONTAL AND LATERAL VIEWS HISTORY: Cough. COMPARISON: 06/25/2016 FINDINGS: Heart size and mediastinal contour within normal limits. No acute infiltrates. Normal vascularity with no pleural fluid or pneumothorax. The bony thorax has no acute finding. IMPRESSION: No acute process.
== END 2017-04-20 22:08 | disposition home or self-care (01) ==
LOC: ED 20:31
DX: J40 Bronchitis, not specified as acute or chronic (principal); J45.20 Mild intermittent asthma, uncomplicated; F17.210 Nicotine dependence, cigarettes, uncomplicated
CPT/HCPCS: 94640; 96372; 99283

== ENCOUNTER 2017-05-11 11:54 | Emergency (ER) ==
[2017-05-11 11:54] VITALS: BMI 36.6
[2017-05-11] MEDS ORDERED: SOLU-MEDROL 125 MG IM STA (11:55)
[2017-05-11] MEDS ORDERED: DUONEB NEB STA (11:55)
[2017-05-11 12:00] VITALS: BP 148/94; TEMP 96.6
--- NOTE | 2017-05-11 12:18 | ED.PDOC ---
General ED Provider: Dr. DESHAUN MC Chief Complaint: Respiratory Complaint Stated Complaint: Pateint is a 42 year old female who has a history of Asthma. Comes to the Er with report of an asthma attack that began last night. She states that she used inhalers and it "would help for a little bit and then would start coughing and I would close right back up". exposed to secound hand tobacco. Time Seen by Physician: 12:16 Mode of Arrival: Walk-In Information Source: Patient Primary Care Provider: MARIANNE PERRIN Nursing and Triage Documentation Reviewed and Agree: Yes Review of Systems - Review Of Systems Constitutional: Reports: No symptoms Respiratory: Reports: Cough, Short of air, Wheezing Neurological: Reports: Anxiety All Other Systems: Reviewed and Negative Past Medical History - Past Medical History Previously Healthy: Yes Endocrine: Reports: None Cardiovascular: Reports: CAD, [place], Hypertension Respiratory: Reports: Asthma Hematological: Reports: None Gastrointestinal: Reports: None Genitourinary: Reports: None Neuro/Psych: Reports: Migraine, Anxiety, Depression Musculoskeletal: Reports: Arthritis, Back Pain, Joint Pain Cancer: Reports: None Last Menstrual Period: 2006 Other Pertinent Past Medical History: PRINZEMETALS - Surgical History General Surgical History: Reports: Hysterectomy (2007), Cholecystectomy, Tonsillectomy, Adenoidectomy, Orthopedic (LEFT ANKLE RESTABALIZATION) - Family History Family History: Reports: Unknown - Social History Smoking Status: Former smoker Hx Substance Use: No Alcohol Screening: None - Immunizations Tetanus Shot up to Date: No Physical Exam - Physical Exam Appearance: Ill-appearing Ill-appearing: Moderate Eyes: SALVADOR, EOMI, Conjunctiva clear Neck: Supple Respiratory: Wheezes Cardiovascular: Pulses normal, Tachycardia Musculoskeletal: Normal strength, ROM intact, No edema, No calf tenderness Skin: Warm, Dry Neurological: Alert, Oriented Psychiatric: Anxious Re-Evaluation - Re-Evaluation Time of Re-Evaluation: 12:00 Status: Improved (fells better no more shortness of breath. ) Lungs: Clear Critical Care Note - Critical Care Note Total Time (mins): 0 Course - Course Orders, Labs, Meds: Orders Category Date Time Status NEBULIZER TREATMENT Stat CARDIO 05/11/17 11:55 Completed Ipratropium/Albuterol Neb [Duoneb] MEDS 05/11/17 11:55 Discontinued 1 vial NEB ONCE STA Methylprednisolone Sod Succ/Pf [Solu-Medrol 125 mg] MEDS 05/11/17 11:55 Discontinued 125 mg IM ONCE STA Medications Discontinued Medications Generic Name Dose Route Start Last Admin Trade Name Freq PRN Reason Stop Dose Admin Albuterol/Ipratropium 1 vial 05/11/17 11:55 05/11/17 12:06 Duoneb NEB 05/11/17 11:56 1 vial ONCE STA Administration Methylprednisolone Sodium Succinate 125 mg 05/11/17 11:55 05/11/17 12:06 Solu-Medrol 125 Mg IM 05/11/17 11:56 125 mg ONCE STA Administration Vital Signs: Temp Pulse Resp BP Pulse Ox 05/11/17 11:54 96.6 F L 111 H 20 148/94 H 95 Departure - Departure Time of Disposition: 12:16 Disposition: HOME SELF-CARE Discharge Problem: Asthma Qualifiers: Asthma severity: moderate Asthma persistence: unspecified Asthma complication type: with acute exacerbation Qualified Code(s): J45.901 - Unspecified asthma with (acute) exacerbation Instructions: Asthma (ED) Condition: Stable Pt referred to PMD for follow-up: Yes Additional Instructions: Avoid second hand smoking exposure Take Medications as prescribed Follow up with PCP in3 days Prescriptions: Methylprednisolone [Medrol Dosepak] 4 mg PO DIRECTED #1 pkg Allergies/Adverse Reactions: Allergies ceftriaxone sodium [From Rocephin] Adverse Reaction (Verified 05/11/17 12:16) ITCHY, SWELLING, BREATHING PROBLEMS Home Medications: Ambulatory Orders Albuterol Sulfate [Proventil Hfa] 6.7 gm IH QID PRN #1 hfa.aer.ad 10/12/15 Albuterol Sulfate [Proair Hfa] 2 puff IH Q6H PRN #1 puff 04/20/17 Methylprednisolone [Medrol Dosepak] 4 mg PO DIRECTED #1 pkg 05/11/17 Disposition Discussed With: Patient
== END 2017-05-11 13:23 | disposition home or self-care (01) ==
LOC: ED 11:54
DX: J45.901 Unspecified asthma with (acute) exacerbation (principal)
CPT/HCPCS: 94640; 96372; 99283

== ENCOUNTER 2017-10-02 19:15 | Emergency (ER) ==
[2017-10-02] MEDS ORDERED: TORADOL IM STA (19:22)
[2017-10-02] MEDS ORDERED: MORPHINE 4 MG/ML SYRINGE IM STA (19:22)
[2017-10-02] MEDS ORDERED: PHENERGAN 25 MG/ML VIAL IM STA (19:22)
[2017-10-02 19:23] VITALS: BP 146/98; TEMP 99.2; BMI 38.4
--- NOTE | 2017-10-02 19:38 | ED.PDOC ---
General ED Provider: Dr. DEYANIRA CORREA-ER Chief Complaint: Headache Stated Complaint: candelario had a migraine for 3 days--its like the other garcias i have but never lasted this long Time Seen by Physician: 19:20 Mode of Arrival: Walk-In Information Source: Patient Exam Limitations: No limitations Primary Care Provider: MARIANNE PERRIN Nursing and Triage Documentation Reviewed and Agree: Yes Reviewed sepsis parameters & appropriate labs ordered?: Yes System Inflammatory Response Syndrome: Not Applicable Sepsis Protocol: For patient's 13 years and over: Temp is 96.8 and below OR 101 and greater Pulse >90 BPM Resp >20/minute Acutely Altered Mental Status Are patient's symptoms suggestive of a new infection, such as: -Pneumonia -Skin, Soft Tissue -Endocarditis -UTI -Bone, Joint Infection -Implantable Device -Acute Abdominal Infection -Wound Infection -Meningitis -Blood Stream Catheter Infection -Unknown Neurological Complaint Exam - Headache Complaint/Exam Onset: Gradual Duration: 3 days Symptoms Are: Still present Timing: Constant Worst Headache Ever: No Initial Severity: Mild Current Severity: Moderate Location: Diffuse Character: Reports: Dull, Throbbing, Typical headache, Migraine Aggravating: Reports: Bright lights Alleviating: Reports: None Associated Signs and Symptoms: Reports: Nausea, Decreased LOC (???). Denies: Dizziness, Seizure, Vomiting, Sinus pressure, Fever, Neck pain, Neck stiffness, Visual changes Related History: Reports: Similar episode. Denies: Recent trauma, Remote trauma Related Surgical History: Reports: None Normal Head CT Within Last 12 Months: No Fundoscopic Exam: Present: Normal Findings Papilledema Present: No Temporal Artery Tenderness: Present: None Sinus Tenderness: Present: None TMJ Tenderness: Present: None Glascow Coma Scale (see protocol): 15 Meningeal Signs Positive: No Pain on Passive Flexion-Positive Kernig's: No ROM Limited In: No Limitiations Focal Weakness: Present: None Focal Sensory Loss: Present: None Gait: Normal Nystagmus Present: No Gag Reflex Present: Yes [id number]: Normal Findings Romberg Test Positive: Yes Babinski Sign: Negative Right, Negative Left Heel to Toe Normal: Yes Differential Diagnoses: Migraine Review of Systems - Review Of Systems Constitutional: Reports: No symptoms Eyes: Reports: No symptoms Ears, Nose, Mouth, Throat: Reports: No symptoms Respiratory: Reports: No symptoms Cardiac: Reports: No symptoms GI: Reports: Nausea : Reports: No symptoms Musculoskeletal: Reports: No symptoms Skin: Reports: No symptoms Neurological: Reports: Headache Endocrine: Reports: No symptoms Hematologic/Lymphatic: Reports: No symptoms All Other Systems: Reviewed and Negative Past Medical History - Past Medical History Previously Healthy: Yes Endocrine: Reports: None Cardiovascular: Reports: CAD, [place], Hypertension Respiratory: Reports: Asthma Hematological: Reports: None Gastrointestinal: Reports: None Genitourinary: Reports: None Neuro/Psych: Reports: Migraine, Anxiety, Depression Musculoskeletal: Reports: Arthritis, Back Pain, Joint Pain Cancer: Reports: None Last Menstrual Period: N/A Other Pertinent Past Medical History: PRINZEMETALS - Surgical History General Surgical History: Reports: Hysterectomy (2007), Cholecystectomy, Tonsillectomy, Adenoidectomy, Orthopedic (LEFT ANKLE RESTABALIZATION) - Family History Family History: Reports: Unknown - Social History Smoking Status: Former smoker Hx Substance Use: No Alcohol Screening: None - Immunizations Tetanus Shot up to Date: No Physical Exam - Physical Exam Appearance: Well-appearing, No pain distress, Well-nourished Pain Distress: Moderate Eyes: SALVADOR ENT: Ears normal, Nose normal, Oropharynx normal Neck: Supple Respiratory: Airway patent Cardiovascular: RRR GI/: Soft, Nontender, No masses, Bowel sounds normal, No Organomegaly Musculoskeletal: Normal strength, ROM intact, No edema, No calf tenderness Skin: Warm, Dry, Normal color Neurological: Sensation intact, Motor intact, Reflexes intact, Cranial nerves intact, Alert, Oriented Psychiatric: Affect appropriate, Mood appropriate Interpretation - Radiology Interpretation Radiology Interpretation By: Radiologist Radiology Results: Negative Exam Interpreted: CT Scan Re-Evaluation - Re-Evaluation Time of Re-Evaluation: 20:35 Status: Improved Vital Signs Stable: Yes Pain Level: 1 Appearance: NAD Lungs: Clear Skin: Warm and Dry Neuro: Alert and Oriented X3 CV: RRR Critical Care Note - Critical Care Note Total Time (mins): 0 Course - Course Orders, Labs, Meds: Orders Category Date Time Status Ketorolac Tromethamine [Toradol] MEDS 10/02/17 19:22 Discontinued 60 mg IM ONCE STA Morphine Sulfate [Morphine 4 mg/ml Syringe] MEDS 10/02/17 19:22 Discontinued 4 mg IM ONCE STA Promethazine HCl [Phenergan 25 mg/ml Vial] MEDS 10/02/17 19:22 Discontinued 25 mg IM ONCE STA CT HEAD W/O CONTRAST Stat RADS 10/02/17 19:21 Completed Medications Discontinued Medications Generic Name Dose Route Start Last Admin Trade Name Freq PRN Reason Stop Dose Admin Ketorolac Tromethamine 60 mg 10/02/17 19:22 10/02/17 19:31 Toradol IM 10/02/17 19:23 60 mg ONCE STA Administration Morphine Sulfate 4 mg 10/02/17 19:22 10/02/17 19:30 Morphine 4 Mg/Ml Syringe IM 10/02/17 19:23 4 mg ONCE STA Administration Promethazine HCl 25 mg 10/02/17 19:22 10/02/17 19:31 Phenergan 25 Mg/Ml Vial IM 10/02/17 19:23 25 mg ONCE STA Administration Vital Signs: Temp Pulse Resp BP Pulse Ox 10/02/17 19:17 99.2 F 99 H 20 146/98 H 98 Departure - Departure Time of Disposition: 20:35 Disposition: HOME SELF-CARE Discharge Problem: Headache Instructions: Migraine Headache (ED) Condition: Good Pt referred to PMD for follow-up: No IPMP verified?: No Additional Instructions: f/u with pcp Allergies/Adverse Reactions: Allergies ceftriaxone sodium [From Rocephin] Adverse Reaction (Verified 10/02/17 19:16) ITCHY, SWELLING, BREATHING PROBLEMS Home Medications: Ambulatory Orders Albuterol Sulfate [Proventil Hfa] 6.7 gm IH QID PRN #1 hfa.aer.ad 10/12/15 Albuterol Sulfate [Proair Hfa] 2 puff IH Q6H PRN #1 puff 04/20/17 Disposition Discussed With: Patient
--- NOTE | 2017-10-02 20:33 | CT ---
EXAM: CT head without contrast. HISTORY: Headache. PROCEDURE: Contiguous axial CT images of the head without contrast with coronal and sagittal reforma ts. FINDINGS: The ventricles and basal cisterns are normal in size and configuration. No evidence of ma ss or midline shift. No intracranial hemorrhage or evidence of large vessel infarct. No extra-axial fluid collection. The paranasal sinuses and mastoid air cells are well-aerated. Impression: Negative CT of the head.
== END 2017-10-02 20:37 | disposition home or self-care (01) ==
LOC: ED 19:15
DX: G43.909 Migraine, unspecified, not intractable, without status migrainosus (principal)
CPT/HCPCS: 96372; 99283

== ENCOUNTER 2017-10-15 05:54 | Emergency (ER) ==
[2017-10-15] MEDS ORDERED: ALBUTEROL 0.083% NEB NEB STA (06:04)
[2017-10-15 06:08] VITALS: BP 152/114; TEMP 98.3; BMI 46.2
[2017-10-15] MEDS ORDERED: SOLU-MEDROL 125 MG IVP STA (06:14)
--- NOTE | 2017-10-15 06:37 | ED.PDOC ---
General <SHAKILABILLYIRAIS - Last Filed: 10/15/17 07:17> Stated Complaint: 3 day history of cough with wheezing and now short of breath. Has use home inhailer but has not helped. Denies any fever. Time Seen by Physician: 06:00 Mode of Arrival: Walk-In Information Source: Patient Exam Limitations: No limitations Nursing and Triage Documentation Reviewed and Agree: Yes Reviewed sepsis parameters & appropriate labs ordered?: No System Inflammatory Response Syndrome: Not Applicable System Inflammatory Response Syndrome: Not Applicable <JESUSITADESHAUN - Last Filed: 10/17/17 06:49> ED Provider: Dr. DESHAUN MC Chief Complaint: Shortness of Air Primary Care Provider: EUGENE WELCH Sepsis Protocol: For patient's 13 years and over: Temp is 96.8 and below OR 101 and greater Pulse >90 BPM Resp >20/minute Acutely Altered Mental Status Are patient's symptoms suggestive of a new infection, such as: -Pneumonia -Skin, Soft Tissue -Endocarditis -UTI -Bone, Joint Infection -Implantable Device -Acute Abdominal Infection -Wound Infection -Meningitis -Blood Stream Catheter Infection -Unknown Review of Systems - Review Of Systems Constitutional: Reports: No symptoms Eyes: Reports: No symptoms Ears, Nose, Mouth, Throat: Reports: No symptoms Respiratory: Reports: Cough, Short of air Cardiac: Reports: No symptoms GI: Reports: No symptoms : Reports: No symptoms Musculoskeletal: Reports: No symptoms Skin: Reports: No symptoms Neurological: Reports: Anxiety Endocrine: Reports: No symptoms Hematologic/Lymphatic: Reports: No symptoms All Other Systems: Reviewed and Negative <JESUSITADESHAUN - Last Filed: 10/17/17 06:49> Past Medical History - Past Medical History Previously Healthy: Yes Endocrine: Reports: None Cardiovascular: Reports: CAD, [place], Hypertension Respiratory: Reports: Asthma Hematological: Reports: None Gastrointestinal: Reports: None Genitourinary: Reports: None Neuro/Psych: Reports: Migraine, Anxiety, Depression Musculoskeletal: Reports: Arthritis, Back Pain, Joint Pain Cancer: Reports: None Last Menstrual Period: 2005 hyst Other Pertinent Past Medical History: PRINZEMETALS - Surgical History General Surgical History: Reports: Hysterectomy (2008), Cholecystectomy, Tonsillectomy, Adenoidectomy, Orthopedic (LEFT ANKLE RESTABALIZATION) - Family History Family History: Reports: Unknown - Social History Smoking Status: Former smoker Hx Substance Use: No Alcohol Screening: None - Immunizations Tetanus Shot up to Date: Yes <DESHAUN MC - Last Filed: 10/17/17 06:49> Physical Exam - Physical Exam Appearance: Ill-appearing, Obese Ill-appearing: Moderate Respiratory: Wheezes Cardiovascular: RRR, Pulses normal Skin: Warm, Dry, Normal color Neurological: Sensation intact, Motor intact, Reflexes intact, Cranial nerves intact, Alert, Oriented Psychiatric: Anxious <ANNEHARMEETDESHAUN - Last Filed: 10/17/17 06:49> Re-Evaluation - Re-Evaluation Time of Re-Evaluation: 06:50 Status: Improved Lungs: Clear <ANNEHARMEETDESHAUN - Last Filed: 10/17/17 06:49> Physician Notification - Case Discussed Endorsed To/Discussed With: Bryanna Time of Discussion: 07:00 <ANNEHARMEETDESHAUN - Last Filed: 10/17/17 06:49> Critical Care Note - Critical Care Note Total Time (mins): 25 <DESHAUN MC - Last Filed: 10/17/17 06:49> - Course Orders, Labs, Meds: Orders Category Date Time Status NEBULIZER TREATMENT Stat CARDIO 10/15/17 06:04 Completed NEBULIZER TREATMENT Stat CARDIO 10/15/17 06:50 Completed IV [ED IV/MEDIPORT/POWERPORT] .ONCE EMERGENCY 10/15/17 06:16 Active 0.9 % Sodium Chloride [Saline Flush] MEDS 10/15/17 06:16 Discontinued 1 syr IVF PRN PRN Albuterol Sulfate 0.083% Neb [Albuterol 0.083% Neb] MEDS 10/15/17 06:04 Discontinued 1 vial NEB ONCE STA Ipratropium/Albuterol Neb [Duoneb] MEDS 10/15/17 06:49 Discontinued 1 vial NEB ONCE STA Methylprednisolone Sod Succ/Pf [Solu-Medrol 125 mg] MEDS 10/15/17 06:14 Discontinued 125 mg IVP ONCE STA CHEST, 2 VIEWS PA & LAT Stat RADS 10/15/17 06:34 Completed Medications Discontinued Medications Generic Name Dose Route Start Last Admin Trade Name Freq PRN Reason Stop Dose Admin Albuterol Sulfate 1 vial 10/15/17 06:04 10/15/17 06:07 Albuterol 0.083% Neb NEB 10/15/17 06:05 1 vial ONCE STA Administration Albuterol/Ipratropium 1 vial 05/23/18 06:49 10/15/17 06:56 Duoneb NEB 10/15/17 06:50 1 vial ONCE STA Administration Methylprednisolone Sodium Succinate 125 mg 10/15/17 06:14 10/15/17 06:18 Solu-Medrol 125 Mg IVP 10/15/17 06:15 125 mg ONCE STA Administration Sodium Chloride 1 syr 10/15/17 06:16 Saline Flush IVF PRN PRN To flush IV Vital Signs: Temp Pulse Resp BP Pulse Ox 10/15/17 05:58 98.3 F 91 H 16 152/114 H 95 Departure - Departure Time of Disposition: 07:17 (Sofia took over care 7 am pt feels better not short of breath chest xray is WNL Rx for MDI/STEROIDS GIVEN) Pt referred to PMD for follow-up: Yes IPMP verified?: No <IRAIS DUNLAP - Last Filed: 10/15/17 07:17> <DESHAUN MC - Last Filed: 10/17/17 06:49> - Departure Disposition: HOME SELF-CARE Discharge Problem: Asthma attack Qualifiers: Asthma severity: severe Asthma persistence: persistent Qualified Code(s): J45.51 - Severe persistent asthma with (acute) exacerbation Instructions: Asthma (ED) Condition: Good Additional Instructions: Please call your Family Physician as soon as possible to schedule a follow-up appointment. Allergies/Adverse Reactions: Allergies ceftriaxone sodium [From Rocephin] Adverse Reaction (Verified 10/15/17 06:08) ITCHY, SWELLING, BREATHING PROBLEMS Home Medications: Ambulatory Orders Albuterol Sulfate [Proair Hfa] 2 puff IH Q6H PRN #1 puff 04/20/17 Budesonide/Formoterol Fumarate [Symbicort 80-4.5 Mcg Inhaler] 1 puff IH DAILY
[2017-10-15] MEDS ORDERED: DUONEB NEB STA (06:49)
--- NOTE | 2017-10-15 07:12 | DI ---
Exam: Two x-rays of the chest. Comparison: 04/20/2017. Reason for exam: Cough. FINDINGS: No pneumothorax, pleural effusion, or focal consolidation. The cardiac silhouette is not enlarged. The imaged osseous structures appear grossly unremarkable without acute fracture. Impression: No acute cardiopulmonary process.
== END 2017-10-15 07:25 | disposition home or self-care (01) ==
LOC: ED 05:54
DX: J45.51 Severe persistent asthma with (acute) exacerbation (principal)
CPT/HCPCS: 94640; 96374; 99283

== ENCOUNTER 2017-11-20 01:14 | Emergency (ER) ==
[2017-11-20 01:24] VITALS: BP 100/68; TEMP 98.5; BMI 47.1
[2017-11-20] MEDS ORDERED: XOPENEX 1.25 MG NEB STA (01:45)
[2017-11-20] MEDS ORDERED: DECADRON 4 MG/ML SDV IM STA ×2 (01:45→01:55)
--- NOTE | 2017-11-20 01:48 | ED.PDOC ---
General ED Provider: Dr. MELISSA BARKER Chief Complaint: Shortness of Air Stated Complaint: Coughing for 3 days, more wheezing, ran out of Inhalers. Time Seen by Physician: 01:46 Mode of Arrival: Walk-In Information Source: Patient, Family Primary Care Provider: EUGENE WELCH Nursing and Triage Documentation Reviewed and Agree: Yes Does patient meet sepsis criteria?: No If yes, has appropriate treatment been initiated?: No System Inflammatory Response Syndrome: Not Applicable Sepsis Protocol: For patient's 13 years and over: Temp is 96.8 and below OR 101 and greater Pulse >90 BPM Resp >20/minute Acutely Altered Mental Status Are patient's symptoms suggestive of a new infection, such as: -Pneumonia -Skin, Soft Tissue -Endocarditis -UTI -Bone, Joint Infection -Implantable Device -Acute Abdominal Infection -Wound Infection -Meningitis -Blood Stream Catheter Infection -Unknown Respiratory Complaint Exam - Respiratory Complaint/Exam Symptoms Are: Still present Timing: Constant Initial Severity: Moderate Current Severity: Moderate Character: Reports: Non-productive cough Aggravating: Reports: Allergens, URI Alleviating: Reports: None Associated Signs and Symptoms: Reports: Rapid breathing, Dyspnea, Wheezing, URI , Nasal congestion History of Healthcare-Acquired Pneumonia: No Related Surgical History: Reports: None Pulmonary Embolism Risk Factors: None Cardiac Risk Factors: Reports: None Pseudomonas Risk Factors: Reports: None Tuberculosis Risk Factors: Reports: None Status Asthmaticus Risk Factors: Reports: None Home Oxygen Use: No Recent Stress Test: No Recent Echo/LV Function: No Current Antibiotic Use: No Current Asthma Medication Use: No Respiratory Distress: Mild Inadequate Respiratory Effort: No Dysphagia Present: No Stridor Present: No JVD Present: No Accessory Muscle Use: No Retractions: Not Present Diminished Breath Sounds: No Prolonged Respiration: Expiratory phase Grunting Respirations: No Kussmaul Respirations: No Differential Diagnoses: Pneumonia, Bronchitis Review of Systems - Review Of Systems Constitutional: Reports: No symptoms Eyes: Reports: No symptoms Ears, Nose, Mouth, Throat: Reports: No symptoms Respiratory: Reports: Cough, Short of air, Wheezing Cardiac: Reports: No symptoms GI: Reports: No symptoms : Reports: No symptoms Musculoskeletal: Reports: No symptoms Skin: Reports: No symptoms Neurological: Reports: No symptoms Endocrine: Reports: No symptoms Hematologic/Lymphatic: Reports: No symptoms All Other Systems: Reviewed and Negative Past Medical History - Past Medical History Previously Healthy: Yes Endocrine: Reports: None Cardiovascular: Reports: CAD, [place], Hypertension Respiratory: Reports: Asthma Hematological: Reports: None Gastrointestinal: Reports: None Genitourinary: Reports: None Neuro/Psych: Reports: Migraine, Anxiety, Depression Musculoskeletal: Reports: Arthritis, Back Pain, Joint Pain Cancer: Reports: None Last Menstrual Period: PT HAS HAD A HYSTERECTOMY Other Pertinent Past Medical History: PRINZEMETALS - Surgical History General Surgical History: Reports: Hysterectomy (2007), Cholecystectomy, Tonsillectomy, Adenoidectomy, Orthopedic (LEFT ANKLE RESTABALIZATION) - Family History Family History: Reports: Unknown - Social History Smoking Status: Current some day smoker, Light tobacco smoker Hx Substance Use: No Alcohol Screening: None - Immunizations Tetanus Shot up to Date: No Physical Exam - Physical Exam Appearance: Ill-appearing, Obese Ill-appearing: Moderate Eyes: SALVADOR, EOMI, Conjunctiva clear ENT: Ears normal, Nose normal, Oropharynx normal Respiratory: Breath sounds diminished, Crackles, Wheezes Cardiovascular: RRR, Pulses normal, No rub, No murmur GI/: Soft, Nontender, No masses, Bowel sounds normal, No Organomegaly Musculoskeletal: Normal strength, ROM intact, No edema, No calf tenderness Skin: Warm, Dry, Normal color Neurological: Sensation intact, Motor intact, Reflexes intact, Cranial nerves intact, Alert, Oriented Psychiatric: Affect appropriate, Mood appropriate Critical Care Note - Critical Care Note Total Time (mins): 30 Course - Course Orders, Labs, Meds: Orders Category Date Time Status NEBULIZER TREATMENT Stat CARDIO 11/20/17 01:45 Ordered Dexamethasone 4 mg/ml Inj [Decadron 4 mg/ml Sdv] MEDS 11/20/17 01:45 Stat 4 mg IM ONCE STA Levalbuterol HCl [Xopenex 1.25 mg] MEDS 11/20/17 01:45 Stat 1 vial NEB ONCE STA CHEST, 2 VIEWS PA & LAT Stat RADS 11/20/17 01:45 Ordered Vital Signs: Temp Pulse Resp BP Pulse Ox 11/20/17 01:15 98.5 F 125 H 32 H 100/68 97 Departure - Departure Time of Disposition: 01:52 Disposition: HOME SELF-CARE Discharge Problem: Asthma exacerbation Qualifiers: Asthma severity: mild Asthma persistence: intermittent Qualified Code(s): J45.21 - Mild intermittent asthma with (acute) exacerbation Instructions: Asthma (DC) Condition: Stable Pt referred to PMD for follow-up: Yes IPMP verified?: No Additional Instructions: take medication with food Increase Hydration f/u with PMD in 2 days avoid smoke Prescriptions: Albuterol Sulfate [Proventil Hfa] 6.7 gm IH 3-4XD #1 hfa.aer.ad Azithromycin [Zithromax] 250 mg PO DIRECTED #6 tablet Prednisone 10 mg PO BIDWM #14 tablet Allergies/Adverse Reactions: Allergies ceftriaxone sodium [From Rocephin] Adverse Reaction (Verified 11/20/17 01:24) ITCHY, SWELLING, BREATHING PROBLEMS Home Medications: Ambulatory Orders Albuterol Sulfate [Proair Hfa] 2 puff IH Q6H PRN #1 puff 04/20/17 Albuterol Sulfate [Proventil Hfa] 6.7 gm IH 3-4XD #1 hfa.aer.ad 11/20/17 Azithromycin [Zithromax] 250 mg PO DIRECTED #6 tablet 11/20/17 Prednisone 10 mg PO BIDWM #14 tablet 11/20/17 Disposition Discussed With: Patient, Family
[2017-11-20] MEDS ORDERED: DUONEB NEB ONE (02:17)
--- NOTE | 2017-11-20 02:42 | DI ---
EXAM: Right hip two views HISTORY: Injury COMPARISON: Right hip 06/04/2015 FINDINGS: There is no acute fracture or dislocation. The surrounding soft tissues are unremarkable. IMPRESSION: No acute findings
--- NOTE | 2017-11-20 02:42 | DI ---
EXAM: Two-view chest HISTORY: Cough COMPARISON: Two-view chest 10/15/2017 FINDINGS: The cardiomediastinal silhouette is stable. The lungs are clear bilaterally. No osseous abnormalities identified. IMPRESSION: No evidence of active pulmonary disease.
[2017-11-20] MEDS ORDERED: TORADOL IM STA (02:52)
== END 2017-11-20 03:10 | disposition home or self-care (01) ==
LOC: ED 01:14
DX: J45.21 Mild intermittent asthma with (acute) exacerbation (principal); F17.210 Nicotine dependence, cigarettes, uncomplicated
CPT/HCPCS: 94640; 96372; 99283

== ENCOUNTER 2017-12-11 12:28 | Emergency (ER) ==
[2017-12-11 12:34] VITALS: BP 133/94; TEMP 97.9; BMI 45.7
--- NOTE | 2017-12-11 13:09 | ED.PDOC ---
General ED Provider: Dr. IRAIS DUNLAP Chief Complaint: Abscess Stated Complaint: abscess Time Seen by Physician: 12:40 (see photos .) Mode of Arrival: Walk-In Information Source: Patient Exam Limitations: No limitations Primary Care Provider: EUGENE WELCH Nursing and Triage Documentation Reviewed and Agree: No (TIERRA PRESENT AT ALL TIMES ) Does patient meet sepsis criteria?: No If yes, has appropriate treatment been initiated?: No System Inflammatory Response Syndrome: Not Applicable (PT DECLINED I/D TIERRA AT BEDSIDE SEE PHOTOS) Sepsis Protocol: For patient's 13 years and over: Temp is 96.8 and below OR 101 and greater Pulse >90 BPM Resp >20/minute Acutely Altered Mental Status Are patient's symptoms suggestive of a new infection, such as: -Pneumonia -Skin, Soft Tissue -Endocarditis -UTI -Bone, Joint Infection -Implantable Device -Acute Abdominal Infection -Wound Infection -Meningitis -Blood Stream Catheter Infection -Unknown Review of Systems - Review Of Systems Constitutional: Reports: No symptoms Eyes: Reports: No symptoms Ears, Nose, Mouth, Throat: Reports: No symptoms Respiratory: Reports: No symptoms Cardiac: Reports: No symptoms GI: Reports: No symptoms : Reports: No symptoms Musculoskeletal: Reports: No symptoms Skin: Reports: Other (ABSCESS LEFT BREAST) Neurological: Reports: No symptoms Endocrine: Reports: No symptoms Hematologic/Lymphatic: Reports: No symptoms All Other Systems: Reviewed and Negative Past Medical History - Past Medical History Previously Healthy: Yes Endocrine: Reports: None Cardiovascular: Reports: CAD, [place], Hypertension Respiratory: Reports: Asthma Hematological: Reports: None Gastrointestinal: Reports: None Genitourinary: Reports: None Neuro/Psych: Reports: Migraine, Anxiety, Depression Musculoskeletal: Reports: Arthritis, Back Pain, Joint Pain Cancer: Reports: None Last Menstrual Period: NA Other Pertinent Past Medical History: PRINZEMETALS - Surgical History General Surgical History: Reports: Hysterectomy (2008), Cholecystectomy, Tonsillectomy, Adenoidectomy, Orthopedic (LEFT ANKLE RESTABALIZATION) - Family History Family History: Reports: Unknown - Social History Smoking Status: Current some day smoker, Light tobacco smoker Hx Substance Use: No Alcohol Screening: None - Immunizations Tetanus Shot up to Date: No Physical Exam - Physical Exam Appearance: Well-appearing, No pain distress, Well-nourished Eyes: SALVADOR, EOMI, Conjunctiva clear ENT: Ears normal, Nose normal, Oropharynx normal Respiratory: Airway patent, Breath sounds clear, Breath sounds equal, Respirations nonlabored Cardiovascular: RRR, Pulses normal, No rub, No murmur GI/: Soft, Nontender, No masses, Bowel sounds normal, No Organomegaly Musculoskeletal: Normal strength, ROM intact, No edema, No calf tenderness Skin: Warm, Dry (ABSCESS NOTED IN PHOTOS) Neurological: Sensation intact, Motor intact, Reflexes intact, Cranial nerves intact, Alert, Oriented Psychiatric: Affect appropriate, Mood appropriate Critical Care Note - Critical Care Note Total Time (mins): 0 Course - Course Vital Signs: Temp Pulse Resp BP Pulse Ox 12/11/17 12:30 97.9 F 73 16 133/94 H 99 Departure - Departure Time of Disposition: 13:08 (DECLINED I/D TIERRA PRESENT RISKS DISCUSSED STILL REFUSED I/D) Disposition: HOME SELF-CARE Discharge Problem: Abscess Instructions: Abscess (ED) Condition: Good Pt referred to PMD for follow-up: Yes IPMP verified?: No Prescriptions: Hydrocodone/Acetaminophen [[place] 10-325 Tablet] 1 each PO Q8HR #7 tablet Allergies/Adverse Reactions: Allergies ceftriaxone sodium [From Rocephin] Adverse Reaction (Verified 12/11/17 12:29) ITCHY, SWELLING, BREATHING PROBLEMS Home Medications: Ambulatory Orders Albuterol Sulfate [Proair Hfa] 2 puff IH Q6H PRN #1 puff 04/20/17 Albuterol Sulfate [Proventil Hfa] 6.7 gm IH 3-4XD #1 hfa.aer.ad 11/20/17 Hydrocodone/Acetaminophen [[place] 10-325 Tablet] 1 each PO Q8HR #7 tablet
== END 2017-12-11 13:15 | disposition home or self-care (01) ==
LOC: ED 12:28
DX: N61.1 Abscess of the breast and nipple (principal); F17.210 Nicotine dependence, cigarettes, uncomplicated
CPT/HCPCS: 99282

== ENCOUNTER 2017-12-13 12:36 | Emergency (ER) ==
[2017-12-13 12:36] VITALS: BMI 45.7
[2017-12-13 12:41] VITALS: BP 174/119; TEMP 98
--- NOTE | 2017-12-13 12:47 | ED.PDOC ---
General ED Provider: Dr. DEYANIRA CORREA-ER Chief Complaint: Abscess Stated Complaint: i had an abcess but the medication is making me sick Time Seen by Physician: 12:44 Mode of Arrival: Walk-In Information Source: Patient, Family Exam Limitations: No limitations Primary Care Provider: EUGENE WELCH Nursing and Triage Documentation Reviewed and Agree: Yes Does patient meet sepsis criteria?: No System Inflammatory Response Syndrome: Not Applicable Sepsis Protocol: For patient's 13 years and over: Temp is 96.8 and below OR 101 and greater Pulse >90 BPM Resp >20/minute Acutely Altered Mental Status Are patient's symptoms suggestive of a new infection, such as: -Pneumonia -Skin, Soft Tissue -Endocarditis -UTI -Bone, Joint Infection -Implantable Device -Acute Abdominal Infection -Wound Infection -Meningitis -Blood Stream Catheter Infection -Unknown Skin Complaint Exam - Skin/Soft Tissue Complaint/Exam Onset/Duration: 3 days Symptoms Are: Still present Timing: Constant Initial Severity: Mild Current Severity: Mild Location: left breast Character: Reports: Redness, Swelling, Painful Aggravating: Reports: None Associated Signs and Symptoms: Reports: Tenderness Related History: Reports: Similar episode Recent Exposure to Others w/Similar Symptoms: No Skin Findings: Present: Erythema, Induration Joint Tenderness Present: No Differential Diagnoses: Abscess, Cellulitis Review of Systems - Review Of Systems Constitutional: Reports: No symptoms Eyes: Reports: No symptoms Ears, Nose, Mouth, Throat: Reports: No symptoms Respiratory: Reports: No symptoms Cardiac: Reports: No symptoms GI: Reports: No symptoms : Reports: No symptoms Musculoskeletal: Reports: No symptoms Skin: Reports: Rash Neurological: Reports: No symptoms Endocrine: Reports: No symptoms Hematologic/Lymphatic: Reports: No symptoms All Other Systems: Reviewed and Negative Past Medical History - Past Medical History Previously Healthy: Yes Endocrine: Reports: None Cardiovascular: Reports: CAD, [place], Hypertension Respiratory: Reports: Asthma Hematological: Reports: None Gastrointestinal: Reports: None Genitourinary: Reports: None Neuro/Psych: Reports: Migraine, Anxiety, Depression Musculoskeletal: Reports: Arthritis, Back Pain, Joint Pain Cancer: Reports: None Last Menstrual Period: NA Other Pertinent Past Medical History: PRINZEMETALS - Surgical History General Surgical History: Reports: Hysterectomy (2008), Cholecystectomy, Tonsillectomy, Adenoidectomy, Orthopedic (LEFT ANKLE RESTABALIZATION) - Family History Family History: Reports: Unknown - Social History Smoking Status: Current some day smoker, Light tobacco smoker Hx Substance Use: No Alcohol Screening: None - Immunizations Tetanus Shot up to Date: No Physical Exam - Physical Exam Appearance: Well-appearing, No pain distress, Well-nourished Pain Distress: Mild Eyes: SALVADOR, EOMI, Conjunctiva clear ENT: Ears normal, Nose normal, Oropharynx normal Neck: Supple Respiratory: Airway patent, Breath sounds clear, Breath sounds equal, Respirations nonlabored Cardiovascular: RRR, Pulses normal, No rub, No murmur GI/: Soft, Nontender, No masses, Bowel sounds normal, No Organomegaly Musculoskeletal: Normal strength, ROM intact, No edema, No calf tenderness Skin: Warm (exam does confimr left breast with area of induration 1cm with surroudning 3cm erythema and warmth), Dry, Normal color Neurological: Sensation intact, Motor intact, Reflexes intact, Cranial nerves intact, Alert, Oriented Psychiatric: Affect appropriate, Mood appropriate Critical Care Note - Critical Care Note Total Time (mins): 0 Course - Course Orders, Labs, Meds: we wanted to do i and d of the abscess today but again she declines--she understands this may delay the healing and could even be fatal due to sepsis but she still refuses Vital Signs: Temp Pulse Resp BP Pulse Ox 12/13/17 12:36 98 F 106 H 18 174/119 H 97 Departure - Departure Time of Disposition: 12:48 Disposition: HOME SELF-CARE Discharge Problem: Abscess Instructions: Breast Mass (ED) Condition: Good Pt referred to PMD for follow-up: Yes IPMP verified?: No Additional Instructions: stop bactrim and norco--clindamycin 300mg tid x 7 days plus percocet 5mg q 4hrs prn pain#10--warm compresses--rcheck in 48hrs if not better Allergies/Adverse Reactions: Allergies ceftriaxone sodium [From Rocephin] Adverse Reaction (Verified 12/13/17 12:41) ITCHY, SWELLING, BREATHING PROBLEMS Home Medications: Ambulatory Orders Albuterol Sulfate [Proair Hfa] 2 puff IH Q6H PRN #1 puff 04/20/17 Albuterol Sulfate [Proventil Hfa] 6.7 gm IH 3-4XD #1 hfa.aer.ad 11/20/17 Disposition Discussed With: Patient
== END 2017-12-13 12:56 | disposition home or self-care (01) ==
LOC: ED 12:36
DX: N61.1 Abscess of the breast and nipple (principal); F17.210 Nicotine dependence, cigarettes, uncomplicated; T50.905A Adverse effect of unspecified drugs, medicaments and biological substances, initial encounter
CPT/HCPCS: 99282

== ENCOUNTER 2018-02-20 11:51 | Emergency (ER) ==
[2018-02-20 11:55] VITALS: BP 138/92; TEMP 98.2; BMI 44.4
--- NOTE | 2018-02-20 12:58 | DI ---
EXAM: CHEST FRONTAL AND LATERAL VIEWS HISTORY: Chest pain. COMPARISON: 11/20/2017 FINDINGS: Heart size and mediastinal contour remain within normal limits. No acute infiltrates. Normal vascularity with no pleural fluid or pneumothorax. The bony thorax has no acute finding. IMPRESSION: No acute process.
--- NOTE | 2018-02-20 13:28 | ED.PDOC ---
General ED Provider: Dr. IRAIS DUNLAP Chief Complaint: Chest Pain Stated Complaint: chest pain Time Seen by Physician: 12:00 (seen with pt's nurse at all time chest pain at 4am) Mode of Arrival: Walk-In Information Source: Patient Exam Limitations: No limitations Primary Care Provider: EUGENE WELCH Nursing and Triage Documentation Reviewed and Agree: Yes Does patient meet sepsis criteria?: Yes If yes, has appropriate treatment been initiated?: No System Inflammatory Response Syndrome: Not Applicable Sepsis Protocol: For patient's 13 years and over: Temp is 96.8 and below OR 101 and greater Pulse >90 BPM Resp >20/minute Acutely Altered Mental Status Are patient's symptoms suggestive of a new infection, such as: -Pneumonia -Skin, Soft Tissue -Endocarditis -UTI -Bone, Joint Infection -Implantable Device -Acute Abdominal Infection -Wound Infection -Meningitis -Blood Stream Catheter Infection -Unknown Cardiovascular Complaint Exam - Chest Pain Complaint/Exam Onset: Sudden Duration: 4am today Symptoms Are: Resolved Length of Chest Pain Episodes: 15 min Initial Severity: Moderate Current Severity: Moderate Location: Reports: Midsternal Pain Radiates: Reports: Left shoulder Character: Reports: Aching Aggravating: Reports: None Alleviating: Reports: Spontaneous resolution Associated Signs and Symptoms: Denies: Diaphoresis, Nausea, Vomiting, Fever, Palpitations, Cough, Hemoptysis, Back pain, Abdominal pain, Dizziness, Short of air, Calf pain, Calf swelling Related History: Reports: Similar episode (when she was 30 when she had an TN ) Related Surgical History: Reports: None History of Healthcare-Acquired Pneumonia: Reports: No Review of Systems - Review Of Systems Constitutional: Reports: No symptoms Eyes: Reports: No symptoms Ears, Nose, Mouth, Throat: Reports: No symptoms Respiratory: Reports: No symptoms Cardiac: Reports: Chest pain GI: Reports: No symptoms : Reports: No symptoms Musculoskeletal: Reports: No symptoms Skin: Reports: No symptoms Neurological: Reports: No symptoms Endocrine: Reports: No symptoms Hematologic/Lymphatic: Reports: No symptoms All Other Systems: Reviewed and Negative Past Medical History - Past Medical History Previously Healthy: Yes Endocrine: Reports: None Cardiovascular: Reports: CAD, [place], Hypertension Respiratory: Reports: Asthma Hematological: Reports: None Gastrointestinal: Reports: None Genitourinary: Reports: None Neuro/Psych: Reports: Migraine, Anxiety, Depression Musculoskeletal: Reports: Arthritis, Back Pain, Joint Pain Cancer: Reports: None Last Menstrual Period: n/a Other Pertinent Past Medical History: PRINZEMETALS - Surgical History General Surgical History: Reports: Hysterectomy (2008), Cholecystectomy, Tonsillectomy, Adenoidectomy, Orthopedic (LEFT ANKLE RESTABALIZATION) - Family History Family History: Reports: Unknown - Social History Smoking Status: Current some day smoker, Light tobacco smoker Hx Substance Use: No Alcohol Screening: None Physical Exam - Physical Exam Appearance: Well-appearing, No pain distress, Well-nourished Eyes: SALVADOR, EOMI, Conjunctiva clear ENT: Ears normal, Nose normal, Oropharynx normal Respiratory: Airway patent, Breath sounds clear, Breath sounds equal, Respirations nonlabored Cardiovascular: RRR, Pulses normal, No rub, No murmur GI/: Soft, Nontender, No masses, Bowel sounds normal, No Organomegaly Musculoskeletal: Normal strength, ROM intact, No edema, No calf tenderness Skin: Warm, Dry, Normal color Neurological: Sensation intact, Motor intact, Reflexes intact, Cranial nerves intact, Alert, Oriented Psychiatric: Affect appropriate, Mood appropriate Interpretation - Radiology Interpretation Radiology Interpretation By: Radiologist Radiology Results: No acute changes Exam Interpreted: CXR - Oil Extractor Rate: Tachy (T INVERSION INF/LATERAL LEADS . THESE CHANGES ARE NEW ) Rhythm: Sinus Physician Notification - Case Discussed Physician Notified: gena LESTER Time of Notification: 13:32 (TRANSFER ) Critical Care Note - Critical Care Note Total Time (mins): 0 Course - Course Hematology/Chemistry: 02/20/18 12:35 02/20/18 12:35 Orders, Labs, Meds: Lab Review 02/20/18 02/20/18 02/20/18 12:22 12:35 12:35 WBC 6.88 RBC 4.90 Hgb 14.5 Hct 42.2 MCV 86.1 MCH 29.6 MCHC 34.4 RDW Coeff of Gregorio 12.8 Plt Count 223 Immature Gran % (Auto) 0.1 Neut % (Auto) 57.3 Lymph % (Auto) 27.8 [place] % (Auto) 6.1 Eos % (Auto) 8.1 H Baso % (Auto) 0.6 Immature Gran # (Auto) 0.0 Neut # (Auto) 3.9 Lymph # (Auto) 1.9 [place] # (Auto) 0.4 Eos # (Auto) 0.6 Baso # (Auto) 0.0 PT INR APTT Puncture Site Rr O2 Saturation 99.0 ABG pH 7.493 H ABG pCO2 25.9 L ABG pO2 118.0 H ABG HCO3 19.9 L ABG Total CO2 21 L ABG Base Excess -3 L Vincent Test + FiO2 % 21.0 Sodium 136.3 L Potassium 4.27 Chloride 103.9 Carbon Dioxide 24.5 Anion Gap 12.17 BUN 20.4 H Creatinine 0.77 Estimated GFR (MDRD) 83.00 BUN/Creatinine Ratio 26.49 Glucose 78.1 Calcium 9.36 Total Bilirubin 0.82 AST 14.5 ALT 7.7 Alkaline Phosphatase 79.7 Total Creatine Kinase 29.2 L Troponin I < 0.012 Total Protein 7.33 Albumin 4.17 Globulin 3.16 Albumin/Globulin Ratio 1.31 02/20/18 12:35 WBC RBC Hgb Hct MCV MCH MCHC RDW Coeff of Gregorio Plt Count Immature Gran % (Auto) Neut % (Auto) Lymph % (Auto) [place] % (Auto) Eos % (Auto) Baso % (Auto) Immature Gran # (Auto) Neut # (Auto) Lymph # (Auto) [place] # (Auto) Eos # (Auto) Baso # (Auto) PT 10.4 INR 1.04 APTT 27.8 Puncture Site O2 Saturation ABG pH ABG pCO2 ABG pO2 ABG HCO3 ABG Total CO2 ABG Base Excess Vincent Test FiO2 % Sodium Potassium Chloride Carbon Dioxide Anion Gap BUN Creatinine Estimated GFR (MDRD) BUN/Creatinine Ratio Glucose Calcium Total Bilirubin AST ALT Alkaline Phosphatase Total Creatine Kinase Troponin I Total Protein Albumin Globulin Albumin/Globulin Ratio Orders Category Date Time Status ABG DRAW REQUEST Stat CARDIO 02/20/18 12:22 Completed EKG-(ED ONLY) Stat CARDIO 02/20/18 12:22 Completed EKG-(ED ONLY) Stat CARDIO 02/20/18 13:10 Completed ABG Stat LAB 02/20/18 12:22 Completed CBC W/ AUTO DIFF Stat LAB 02/20/18 12:35 Completed COMPREHENSIVE METABOLIC PANEL Stat LAB 02/20/18 12:35 Completed CREATINE KINASE Stat LAB 02/20/18 12:35 Completed D-DIMER Stat LAB 02/20/18 Ordered PARTIAL THROMBOPLASTIN TIME Stat LAB 02/20/18 12:35 Completed PT WITH INR Stat LAB 02/20/18 12:35 Completed TROPONIN I Stat LAB 02/20/18 12:35 Completed CHEST, 2 VIEWS PA & LAT Stat RADS 02/20/18 12:21 Completed Vital Signs: Temp Pulse Resp BP Pulse Ox 02/20/18 11:51 98.2 F 115 H 20 138/92 H 97 IVETTE Risk Score IVETTE Risk Score: Risk Score Odds of by 30D 0 0.1 (0.1-0.2) 1 0.3 (0.2-0.3) 2 0.4 (0.3-0.5) 3 0.7 (0.6-0.9) 4 1.2 (1.0-1.5) 5 2.2 (1.9-2.6) 6 3.0 (2.5-3.6) 7 4.8 (3.8-6.1) Departure - Departure Time of Disposition: 13:32 Disposition: TSF SHORT-TRM HOSP Discharge Problem: Chest pain Chest pain Qualifiers: Chest pain type: unspecified Qualified Code(s): R07.9 - Chest pain, unspecified Instructions: Angina (ED) Condition: Good Pt referred to PMD for follow-up: Yes IPMP verified?: No Allergies/Adverse Reactions: Allergies ceftriaxone sodium [From Rocephin] Adverse Reaction (Verified 02/20/18 11:56) ITCHY, SWELLING, BREATHING PROBLEMS Home Medications: Ambulatory Orders Albuterol Sulfate [Proair Hfa] 2 puff IH Q6H PRN #1 puff 04/20/17 Transfer Form Completed: Yes Disposition Discussed With: Patient
[2018-02-20] MEDS ORDERED: ASPIRIN CHEWABLE PO STA (13:34)
== END 2018-02-20 14:42 | disposition short-term general hospital (02) ==
LOC: ED 11:51
DX: R07.9 Chest pain, unspecified (principal)
CPT/HCPCS: 36415; 80053; 82550; 82803; 84484; 85025; 85379; 85610; 85730; 93005; 93010; 99285

== ENCOUNTER 2018-02-20 14:40 | Outpatient (CLI) ==
[2012-11-21 16:49] VITALS: TEMP 98.8
[2018-02-20 11:55] VITALS: BMI 44.4
== END 2018-02-20 15:04 | disposition short-term general hospital (02) ==
LOC: AMBL 14:40
PROVIDERS: ATTEND Internal Medicine
DX: R07.9 Chest pain, unspecified (principal); R94.31 Abnormal electrocardiogram [ECG] [EKG]

== ENCOUNTER 2018-03-17 08:22 | Outpatient (RCR) ==
[2012-11-21 16:49] VITALS: TEMP 98.8
--- NOTE | 2018-03-17 15:48 | RS.OPPTEV2 ---
Date of Note: 03/17/18 Visit #: 1 Number of visits approved by Insurance: pending approval Date of Evaluation: 03/17/18 Payer Source: Medicaid Surgery Performed?: No Treatment Diagnosis: hip pain History of Condition/Mechanism of Injury:: pt reports has had hip pain for years states it is getting progressively worse. No definite injury identified. Prior Level of Function.....Patient was independent with: ADL's, Self Care, Ambulation/Mobility, Community Integration/Access Functional Limitations: Sleep, Pushing, Pulling, Lifting, Carrying, Sitting, Standing, Bending, Squatting, Ambulation Current Subjective/complaints:: pt states she cannot do anything. pt becomes tearful stating she cannot sleep due to pain as well as unable to walk for ex due to the pain. pt states pain is unbearable at times. pt states she also has a hx of LBP for which she was a pt at pain management however injections were too painful so she stopped going. Treatment Side (optional): Bilateral *Precautions: n/a Medical History Medical History: Arthritis Medical History Comments:: prinzmetal angina Surgical History: Cholecystectomy, Tonsillectomy, Hysterectomy Surgical History Comments:: L ankle stabilization Smoking Status: Current every day smoker Diagnostic Testing/Imaging:: B hip XRAY: no acute osseous abnormality, no significant degenerative changes of the B hip joints, facet hypertrophy within the lower lumbar spine and worse on the R. Hx Home Medications: proair, sumbacort, hydroxine, ibuprofen, naproxen Patient's Goals: decrease pain Pain Assessment - Pain Description Pain Location: B hips R worse than L as well as low back pain Pain Description: Sharp, Aching Current Pain Intensity: R hip 8/10, L hip 6/10, low back pain 5/10 Functional Outcome Measure LE Functional Scale: 17 - G Codes & Severity Modifier G Codes & Modifier: n/a Source of G Code score: n/a Observation - Observation Posture: Forward Head, Rounded Shoulders Handedness: Right Gait - Gait Pattern General Gait Pattern Observation: Decrease Stride Lngth (R), Decrease Stride Lngth (L), Lateral Trunk Lean Gait Comments: pt amb with pronation B feet, B valgus deformity BLE with hip rotated with decreased step length. General Range of Motion: BUE WFL's. BLE WFL's Muscle Strength: BUE 5/6. LLE hip flex 3+/5, knee flex/ext 4/5 ankle DF/PF 4+/ 5. RLE hip flex 3/5, knee flex/ext 4/5, ankle DF/PF 4+/5 - ROM Lumbar Flexion: Hand reach to patellae Sidebending to Left: Reach to Mid-thigh Sidebending to Right: Reach to Mid-thigh Lumbar Spine ROM Limitations: Soft Tissue Tightness, Muscle Weakness, Pain Comments: pt yells with pain with lat side bending - Strength Trunk Extension: 3+ Fair+ Trunk Flexion: 3- Fair- Trunk Lateral Flexion: 3- Fair- - Special Tests SLR Test: Positive Left, Positive Right Seated Dural Stretch Test: Positive Left, Positive Right Comments: Unable to perform special tests due to pain. pt presents with high pain profile and withdrawls to light touch. pt with pain with all ROM. Hip ROM: Bilaterally WFL's - Left Hip ROM Left Hip ROM Limitations: Soft Tissue Tightness, Pain Comments: see general for strength. Special tests limited due to high pain profile and pt unable to tolerate special test. pt RLE hip flex/knee flex pt yelled out in pain with no resistance. pt also yells out in pain with gentle palpation to R hip Palpation Palpation Findings: Tenderness Comments:: unable to assess for trigger points due to pt high pain profile. Sensation - Sensation Right Upper Extremity: Intact/Normal Left Upper Extremity: Intact/Normal Right Lower Extremity: Intact/Normal Left Lower Extremity: Intact/Normal Balance - Sitting Balance Static Sitting Balance: Normal Dynamic Sitting Balance: Normal - Standing Balance Static Standing Balance: Good Dynamic Standing Balance: Good - Heat/Cryotherapy Treatment: Cryotherapy Comments:: B hip/sacral areas Interventions - Exercise/Activities/Manual Therapy Exercises/Activities: pt performed isometric hip add as well as isometric hip flex x 3-5 reps. pt gentle hamstring stretch, pt unable to tolerate further ex. Manual Therapy: n/a HOME EXERCISE PROGRAM: pt given written HEP including: piriformis stretch, hamstring stretch, isometric hip flex, isometric hip add - Charges Timed Code Treatment Minutes: 52 Total Treatment Time: 61 Procedures billed for this date of service:: eval low, cold pack EVALUATION COMPLEXITY LEVEL EVALUATION COMPLEXITY LEVEL: HISTORY: Low (hip pain, OA), EXAM OF BODY SYSTEMS: Medium (pain , strength, muscle tightness), CLINICAL PRESENTATION: Low, CLINICAL DECISION MAKING: Low Assessment Assessment: Assessment limited due to pt high pain profile and pt withdraws to light touch. pt unable to tolerate special tests. pt cries when only lying on table without touching patient. Patient Education: Home Exercise Program, Education of Plan of Care Rehab Potential: Fair Short Term Goals Goal #1: pt report pain < 6/10 with activity B hips Goal to be met by: 03/31/18 Goal #2: pt independent with initial HEP Goal to be met by: 03/31/18 Goal #3: Improve BLE strength 4 to 4+/5 Goal to be met by: 03/31/18 Goal #4: Improve lumbar ROM with less pain Goal to be met by: 03/31/18 Surgical Orderly Goals Goal #1: pt report able to sleep >3-4 hours per night w/o interruptions Goal to be met by: 04/17/18 Goal #2: pt report pain <4/10 with activity Goal to be met by: 04/17/18 Goal #3: pt with improved hamstring flexibility WFL's Goal to be met by: 04/17/18 Goal #4: LE functional scale >30/80 Goal to be met by: 04/17/18 Plan - Treatment to be Provided Procedures: Therapeutic Exercises, Therapeutic Activity, Neuromuscular Rehab, Manual Therapy, Massage, Patient Education Modalities: Electrical Stimulation, Ultrasound/Phonophoresis, Cryotherapy, Hot Packs - Treatment Plan Frequency: 2-3x week Duration: 4 weeks Dates of Halfway Goals: 04/17/18 Expiration date of current Insurance Approval:: pending approval - Treatment Code (1) Hip pain Code(s): M25.559 - PAIN IN UNSPECIFIED HIP Qualifiers: Laterality: bilateral Qualified Code(s): M25.551 - Pain in right hip; M25.552 - Pain in left hip (2) Low back pain Code(s): M54.5 - LOW BACK PAIN Qualifiers: Chronicity: chronic Back pain laterality: bilateral (3) Muscle weakness Code(s): M62.81 - MUSCLE WEAKNESS (GENERALIZED) (4) Muscle tightness Code(s): M62.89 - OTHER SPECIFIED DISORDERS OF MUSCLE
--- NOTE | 2018-03-24 09:10 | RS.CXNS ---
Date of scheduled appointment: 03/24/18 Type: Cancel Reason for Cancel/NS: Called , is sick today.
== END 2018-03-25 23:59 ==
PROVIDERS: ATTEND Physician Assistant
DX: M25.552 Pain in left hip (principal); M25.551 Pain in right hip; M54.5 Low back pain; M62.81 Muscle weakness (generalized); M62.89 Other specified disorders of muscle

== ENCOUNTER 2018-03-17 09:34 | Outpatient (CLI) ==
[2012-11-21 16:49] VITALS: TEMP 98.8
--- NOTE | 2018-03-17 10:44 | DI ---
EXAM: Single view of the pelvis and two views of bilateral hips. History: Bilateral hip pain. Findings: No acute fracture or dislocation. Bilateral hip joint spaces are preserved with no signif icant sclerosis or osteophyte formation. Small pelvic calcifications are probably phleboliths. Ther e is facet hypertrophy within the lower lumbar spine and worse on the right. Impression: 1. No acute osseous abnormality. 2. No significant degenerative changes of the bilateral hip joints. 3. Facet hypertrophy within the lower lumbar spine and worse on the right
== END 2018-03-17 09:35 | disposition home or self-care (01) ==
LOC: RAD 09:34
PROVIDERS: ATTEND Physician Assistant
DX: M25.552 Pain in left hip (principal); M25.551 Pain in right hip

== ENCOUNTER 2018-06-04 04:03 | Outpatient (CLI) ==
[2012-11-21 16:49] VITALS: TEMP 98.8
[2018-06-04 04:19] VITALS: BMI 45.7
== END 2018-06-04 04:04 | disposition home or self-care (01) ==
LOC: AMBL 04:03
PROVIDERS: ATTEND Internal Medicine Geriatric Medicine
DX: R06.2 Wheezing (principal); J45.909 Unspecified asthma, uncomplicated

== ENCOUNTER 2018-06-04 04:11 | Emergency (ER) ==
[2018-06-04 04:19] VITALS: BMI 45.7
[2018-06-04] MEDS ORDERED: SODIUM CHLORIDE 1,000 ML IV STA (04:19)
[2018-06-04] MEDS ORDERED: XOPENEX 0.63 MG NEB STA (04:22)
[2018-06-04] MEDS ORDERED: ALBUTEROL 0.083% NEB NEB STA (04:23)
--- NOTE | 2018-06-04 04:23 | ED.PDOC ---
General ED Provider: Dr. DESHAUN MC Chief Complaint: Shortness of Air Stated Complaint: Jacquie is a 43 year old female who comes to the ER with increased shortness of breath with history of asthma. 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 Also states chest feels tight. Time Seen by Physician: 04:20 Mode of Arrival: Ambulance Information Source: Patient, EMT Exam Limitations: No limitations Primary Care Provider: EUGENE WELCH Seen Within Last 72 Hours for Same Complaint By: ED Sepsis Protocol: For patient's 13 years and over: Temp is 96.8 and below OR 101 and greater Pulse >90 BPM Resp >20/minute Acutely Altered Mental Status Are patient's symptoms suggestive of a new infection, such as: -Pneumonia -Skin, Soft Tissue -Endocarditis -UTI -Bone, Joint Infection -Implantable Device -Acute Abdominal Infection -Wound Infection -Meningitis -Blood Stream Catheter Infection -Unknown Past Medical History - Past Medical History Previously Healthy: Yes Endocrine: Reports: None Cardiovascular: Reports: CAD, [place], Hypertension Respiratory: Reports: Asthma Hematological: Reports: None Gastrointestinal: Reports: None Genitourinary: Reports: None Neuro/Psych: Reports: Migraine, Anxiety, Depression Musculoskeletal: Reports: Arthritis, Back Pain, Joint Pain Cancer: Reports: None Last Menstrual Period: PT HAS HAD A HYSTERECTOMY Other Pertinent Past Medical History: PRINZEMETALS - Surgical History General Surgical History: Reports: Hysterectomy (2007), Cholecystectomy, Tonsillectomy, Adenoidectomy, Orthopedic (LEFT ANKLE RESTABALIZATION) - Family History Family History: Reports: Unknown - Social History Smoking Status: Current every day smoker, Light tobacco smoker Hx Substance Use: No Alcohol Screening: None - Immunizations Tetanus Shot up to Date: No Physical Exam - Physical Exam Appearance: Obese Pain Distress: Mild Eyes: SALVADOR, EOMI, Conjunctiva clear Respiratory: Wheezes Cardiovascular: Tachycardia GI/: Soft, Nontender, No masses, Bowel sounds normal, No Organomegaly Musculoskeletal: Normal strength, ROM intact, No edema, No calf tenderness Skin: Warm, Dry, Normal color Neurological: Alert, Oriented Psychiatric: Affect appropriate, Anxious Interpretation - Radiology Interpretation Radiology Interpretation By: ED Physician Radiology Results: Negative Exam Interpreted: CXR Re-Evaluation - Re-Evaluation Time of Re-Evaluation: 05:34 Status: Improved Vital Signs Stable: Yes (148/88, Resp 21) Appearance: NAD Lungs: Other (better air movment with less wheezing.) Course - Course Hematology/Chemistry: 06/04/18 04:30 06/04/18 04:30 Orders, Labs, Meds: Lab Review 06/04/18 06/04/18 06/04/18 04:30 04:30 04:30 WBC 7.38 RBC 4.49 Hgb 13.4 Hct 39.6 MCV 88.2 MCH 29.8 MCHC 33.8 RDW Coeff of Gregorio 12.7 Plt Count 247 Immature Gran % (Auto) 0.1 Neut % (Auto) 53.8 Lymph % (Auto) 34.3 [place] % (Auto) 5.4 Eos % (Auto) 5.7 Baso % (Auto) 0.7 Immature Gran # (Auto) 0.0 Neut # (Auto) 4.0 Lymph # (Auto) 2.5 [place] # (Auto) 0.4 Eos # (Auto) 0.4 Baso # (Auto) 0.1 D-Dimer (Manual) Sodium 136.6 Potassium 4.07 Chloride 105.8 Carbon Dioxide 27.0 Anion Gap 7.87 BUN 12.5 Creatinine 0.75 Estimated GFR (MDRD) 85.00 BUN/Creatinine Ratio 16.66 Glucose 92.7 Calcium 9.12 Total Bilirubin 0.24 AST 14.9 ALT 8.9 Alkaline Phosphatase 93.6 Total Creatine Kinase 26.2 L Troponin I < 0.012 Total Protein 7.00 Albumin 3.95 Globulin 3.05 Albumin/Globulin Ratio 1.29 Procalcitonin < 0.05 06/04/18 04:30 WBC RBC Hgb Hct MCV MCH MCHC RDW Coeff of Gregorio Plt Count Immature Gran % (Auto) Neut % (Auto) Lymph % (Auto) [place] % (Auto) Eos % (Auto) Baso % (Auto) Immature Gran # (Auto) Neut # (Auto) Lymph # (Auto) [place] # (Auto) Eos # (Auto) Baso # (Auto) D-Dimer (Manual) 387.30 Sodium Potassium Chloride Carbon Dioxide Anion Gap BUN Creatinine Estimated GFR (MDRD) BUN/Creatinine Ratio Glucose Calcium Total Bilirubin AST ALT Alkaline Phosphatase Total Creatine Kinase Troponin I Total Protein Albumin Globulin Albumin/Globulin Ratio Procalcitonin Orders Category Date Time Status ABG DRAW REQUEST Stat CARDIO 06/04/18 04:16 Ordered EKG-(ED ONLY) Stat CARDIO 06/04/18 04:16 Ordered NEBULIZER TREATMENT Stat CARDIO 06/04/18 04:24 Ordered ED IV/MEDIPORT/POWERPORT .ONCE EMERGENCY 06/04/18 04:16 Active ABG Stat LAB 06/04/18 04:16 Ordered CBC W/ AUTO DIFF Stat LAB 06/04/18 04:30 Completed COMPREHENSIVE METABOLIC PANEL Stat LAB 06/04/18 04:30 Completed CREATINE KINASE Stat LAB 06/04/18 04:30 Completed D-DIMER Stat LAB 06/04/18 04:30 Completed LACTIC ACID Stat LAB 06/04/18 04:19 Ordered PROCALCITONIN Stat LAB 06/04/18 04:30 Completed TROPONIN I Stat LAB 06/04/18 04:30 Completed 0.9 % Sodium Chloride [Saline Flush] MEDS 06/04/18 04:16 Ordered 1 syr IVF PRN PRN Albuterol Sulfate 0.083% Neb [Albuterol 0.083% Neb] MEDS 06/04/18 04:23 Discontinued 1 vial NEB ONCE STA Methylprednisolone Sod Succ/Pf [Solu-Medrol 125 mg] MEDS 06/04/18 06:03 Stat 125 mg IVP ONCE STA Sodium Chloride 0.9% [Sodium Chloride] 1,000 ml MEDS 06/04/18 04:19 Discontinued IV BOLUS CHEST, 2 VIEWS PA & LAT Stat RADS 06/04/18 04:20 Taken Medications Generic Name Dose Route Start Last Admin Trade Name Freq PRN Reason Stop Dose Admin Sodium Chloride 1 syr 06/04/18 04:16 06/04/18 05:11 Saline Flush IVF 1 syr PRN PRN Administration To flush IV Discontinued Medications Generic Name Dose Route Start Last Admin Trade Name Freq PRN Reason Stop Dose Admin Albuterol Sulfate 1 vial 06/04/18 04:23 Albuterol 0.083% Neb NEB 06/04/18 04:24 ONCE STA Sodium Chloride 1,000 mls @ 1,000 mls/hr 06/04/18 04:19 06/04/18 05:11 Sodium Chloride IV 06/04/18 05:18 1,000 mls/hr BOLUS STA Administration Vital Signs: Temp Pulse Resp BP Pulse Ox 06/04/18 04:11 98.8 F 92 H 36 H 179/115 H 98 Departure - Departure Time of Disposition: 06:15 Disposition: HOME SELF-CARE Discharge Problem: Asthma attack Qualifiers: Asthma severity: severe Asthma persistence: unspecified Qualified Code(s): J45.901 - Unspecified asthma with (acute) exacerbation Instructions: How to Use a Nebulizer (ED), Bronchospasm (ED) Condition: Stable Pt referred to PMD for follow-up: Yes IPMP verified?: No Additional Instructions: Take Medications as prescribed. Follow up with PCP in 3 days Avoid Chemicals that can trigger your asthma Prescriptions: Prednisone 20 mg PO DAILYWM #5 tablet Allergies/Adverse Reactions: Allergies ceftriaxone sodium [From Rocephin] Adverse Reaction (Verified 06/04/18 04:19) ITCHY, SWELLING, BREATHING PROBLEMS Home Medications: Ambulatory Orders Albuterol Sulfate [Proair Hfa] 2 puff IH Q6H PRN #1 puff 04/20/17 Budesonide/Formoterol Fumarate [Symbicort 160-4.5 Mcg Inhaler] 1 puff IH BID Albuterol Sulfate 0.083% Neb [Albuterol 0.083% Neb] 1 vial NEB RTQ6H PRN #60 vial.neb 05/05/18 Amitriptyline HCl 50 mg PO BEDTIME 05/05/18 Prednisone 20 mg PO DAILYWM #5 tablet 06/04/18 Disposition Discussed With: Patient, Family
[2018-06-04 04:24] VITALS: TEMP 98.8
[2018-06-04] MEDS ORDERED: SOLU-MEDROL 125 MG IVP STA (06:03)
[2018-06-04 06:18] VITALS: BP 148/88
--- NOTE | 2018-06-04 06:27 | ED.PDOC ---
General ED Provider: Dr. DESHAUN MC Chief Complaint: Shortness of Air Stated Complaint: Patient is a 43 year old female who comes to the ER with increased shortness of breath with history of asthma. States she is exposed to a chemical hair dye that irriated her lungs. Also states chest feels tight. Time Seen by Physician: 04:30 Mode of Arrival: Ambulance Information Source: Patient, EMT Exam Limitations: No limitations Primary Care Provider: EUGENE WELCH Seen Within Last 72 Hours for Same Complaint By: ED Nursing and Triage Documentation Reviewed and Agree: No Does patient meet sepsis criteria?: No If yes, has appropriate treatment been initiated?: No System Inflammatory Response Syndrome: Not Applicable Sepsis Protocol: For patient's 13 years and over: Temp is 96.8 and below OR 101 and greater Pulse >90 BPM Resp >20/minute Acutely Altered Mental Status Are patient's symptoms suggestive of a new infection, such as: -Pneumonia -Skin, Soft Tissue -Endocarditis -UTI -Bone, Joint Infection -Implantable Device -Acute Abdominal Infection -Wound Infection -Meningitis -Blood Stream Catheter Infection -Unknown Respiratory Complaint Exam - Shortness of Air Complaint/Exam Onset/Duration: just prior to arrival Symptoms Are: Still present Initial Severity: Moderate Current Severity: Severe Character: Reports: Dyspnea at rest Alleviating: Reports: Bronchodilators Associated Signs and Symptoms: Reports: Wheezing, Chest pain with cough Related History: Reports: Allergic reaction History of Healthcare-Acquired Pneumonia: No Pulmonary Embolism Risk Factors: Reports: Smoking Cardiac Risk Factors: Reports: Prior NE Pseudomonas Risk Factors: Reports: None Tuberculosis Risk Factors: Reports: Corticosteriod use Home Oxygen Use: No Recent Stress Test: No Recent Echo/LV Function: No Stridor Present: No Tracheal Deviation: No Subcutaneous Emphysema: No Accessory Muscle Use: Yes Retractions: Supraclavicular Diminished Breath Sounds: No Prolonged Expiratory Phase: Yes Unable to Speak Full Sentences: Yes Fatigue: No Leg Swelling: No Clovis's Sign Present: No Grunting Respirations: No Kussmaul Respirations: No Differential Diagnoses: Asthma, Pneumonia, Bronchitis Review of Systems - Review Of Systems Constitutional: Reports: No symptoms Eyes: Reports: No symptoms Ears, Nose, Mouth, Throat: Reports: No symptoms Respiratory: Reports: Cough, Short of air Cardiac: Reports: No symptoms GI: Reports: No symptoms : Reports: No symptoms Musculoskeletal: Reports: No symptoms Skin: Reports: No symptoms Neurological: Reports: Anxiety Endocrine: Reports: No symptoms Hematologic/Lymphatic: Reports: No symptoms All Other Systems: Reviewed and Negative Past Medical History - Past Medical History Previously Healthy: Yes Endocrine: Reports: None Cardiovascular: Reports: CAD, NE, Hypertension Respiratory: Reports: Asthma Hematological: Reports: None Gastrointestinal: Reports: None Genitourinary: Reports: None Neuro/Psych: Reports: Migraine, Anxiety, Depression Musculoskeletal: Reports: Arthritis, Back Pain, Joint Pain Cancer: Reports: None Last Menstrual Period: PT HAS HAD A HYSTERECTOMY Other Pertinent Past Medical History: PRINZEMETALS - Surgical History General Surgical History: Reports: Hysterectomy (2007), Cholecystectomy, Tonsillectomy, Adenoidectomy, Orthopedic (LEFT ANKLE RESTABALIZATION) - Family History Family History: Reports: Unknown - Social History Smoking Status: Current every day smoker, Light tobacco smoker Hx Substance Use: No Alcohol Screening: None - Immunizations Tetanus Shot up to Date: No Physical Exam - Physical Exam Appearance: Ill-appearing, Obese Ill-appearing: Mild Eyes: [place]OR, EOMI, Conjunctiva clear Neck: Supple Respiratory: Wheezes Cardiovascular: Tachycardia Neurological: Alert, Oriented Psychiatric: Anxious Interpretation - Radiology Interpretation Radiology Interpretation By: ED Physician Radiology Results: Negative Exam Interpreted: CXR Re-Evaluation - Re-Evaluation Time of Re-Evaluation: 06:31 Status: Improved Vital Signs Stable: Yes (Yes (148/88, Resp 21)) Pain Level: pain gone. Appearance: NAD Lungs: Other (mellisa air movement.) Skin: Warm and Dry Neuro: Alert and Oriented X3 Critical Care Note - Critical Care Note Total Time (mins): 50 Course - Course Hematology/Chemistry: 06/04/18 04:30 06/04/18 04:30 Orders, Labs, Meds: Lab Review 06/04/18 06/04/18 06/04/18 04:16 04:30 04:30 WBC 7.38 RBC 4.49 Hgb 13.4 Hct 39.6 MCV 88.2 MCH 29.8 MCHC 33.8 RDW Coeff of Gregorio 12.7 Plt Count 247 Immature Gran % (Auto) 0.1 Neut % (Auto) 53.8 Lymph % (Auto) 34.3 [place] % (Auto) 5.4 Eos % (Auto) 5.7 Baso % (Auto) 0.7 Immature Gran # (Auto) 0.0 Neut # (Auto) 4.0 Lymph # (Auto) 2.5 [place] # (Auto) 0.4 Eos # (Auto) 0.4 Baso # (Auto) 0.1 D-Dimer (Manual) Puncture Site Lrad O2 Saturation 96.0 ABG pH 7.390 ABG pCO2 36.6 ABG pO2 79.0 L ABG HCO3 22.2 ABG Total CO2 23 ABG Base Excess -3 L Vincent Test + FiO2 % 21.0 Sodium 136.6 Potassium 4.07 Chloride 105.8 Carbon Dioxide 27.0 Anion Gap 7.87 BUN 12.5 Creatinine 0.75 Estimated GFR (MDRD) 85.00 BUN/Creatinine Ratio 16.66 Glucose 92.7 Calcium 9.12 Total Bilirubin 0.24 AST 14.9 ALT 8.9 Alkaline Phosphatase 93.6 Total Creatine Kinase 26.2 L Troponin I < 0.012 Total Protein 7.00 Albumin 3.95 Globulin 3.05 Albumin/Globulin Ratio 1.29 Procalcitonin 06/04/18 06/04/18 04:30 04:30 WBC RBC Hgb Hct MCV MCH MCHC RDW Coeff of Gregorio Plt Count Immature Gran % (Auto) Neut % (Auto) Lymph % (Auto) [place] % (Auto) Eos % (Auto) Baso % (Auto) Immature Gran # (Auto) Neut # (Auto) Lymph # (Auto) [place] # (Auto) Eos # (Auto) Baso # (Auto) D-Dimer (Manual) 387.30 Puncture Site O2 Saturation ABG pH ABG pCO2 ABG pO2 ABG HCO3 ABG Total CO2 ABG Base Excess Vincent Test FiO2 % Sodium Potassium Chloride Carbon Dioxide Anion Gap BUN Creatinine Estimated GFR (MDRD) BUN/Creatinine Ratio Glucose Calcium Total Bilirubin AST ALT Alkaline Phosphatase Total Creatine Kinase Troponin I Total Protein Albumin Globulin Albumin/Globulin Ratio Procalcitonin < 0.05 Orders Category Date Time Status ABG DRAW REQUEST Stat CARDIO 06/04/18 04:16 Ordered EKG-(ED ONLY) Stat CARDIO 06/04/18 04:16 Ordered NEBULIZER TREATMENT Stat CARDIO 06/04/18 04:24 Ordered ED IV/MEDIPORT/POWERPORT .ONCE EMERGENCY 06/04/18 04:16 Active ABG Stat LAB 06/04/18 04:16 Ordered CBC W/ AUTO DIFF Stat LAB 06/04/18 04:30 Completed COMPREHENSIVE METABOLIC PANEL Stat LAB 06/04/18 04:30 Completed CREATINE KINASE Stat LAB 06/04/18 04:30 Completed D-DIMER Stat LAB 06/04/18 04:30 Completed PROCALCITONIN Stat LAB 06/04/18 04:30 Completed TROPONIN I Stat LAB 06/04/18 04:30 Completed 0.9 % Sodium Chloride [Saline Flush] MEDS 06/04/18 04:16 Ordered 1 syr IVF PRN PRN Albuterol Sulfate 0.083% Neb [Albuterol 0.083% Neb] MEDS 06/04/18 04:23 Discontinued 1 vial NEB ONCE STA Methylprednisolone Sod Succ/Pf [Solu-Medrol 125 mg] MEDS 06/04/18 06:03 Stat 125 mg IVP ONCE STA Sodium Chloride 0.9% [Sodium Chloride] 1,000 ml MEDS 06/04/18 04:19 Discontinued IV BOLUS CHEST, 2 VIEWS PA & LAT Stat RADS 06/04/18 04:20 Taken Medications Generic Name Dose Route Start Last Admin Trade Name Freq PRN Reason Stop Dose Admin Sodium Chloride 1 syr 06/04/18 04:16 06/04/18 05:11 Saline Flush IVF 1 syr PRN PRN Administration To flush IV Discontinued Medications Generic Name Dose Route Start Last Admin Trade Name Freq PRN Reason Stop Dose Admin Albuterol Sulfate 1 vial 06/04/18 04:23 06/04/18 05:02 Albuterol 0.083% Neb NEB 06/04/18 04:24 1 vial ONCE STA Administration Sodium Chloride 1,000 mls @ 1,000 mls/hr 06/04/18 04:19 06/04/18 05:11 Sodium Chloride IV 06/04/18 05:18 1,000 mls/hr BOLUS STA Administration Methylprednisolone Sodium Succinate 125 mg 06/04/18 06:03 06/04/18 06:14 Solu-Medrol 125 Mg IVP 06/04/18 06:04 125 mg ONCE STA Administration Vital Signs: Temp Pulse Resp BP Pulse Ox 06/04/18 06:18 84 21 148/88 H 100 06/04/18 04:11 98.8 F 92 H 36 H 179/115 H 98 Departure - Departure Time of Disposition: 06:33 Disposition: HOME SELF-CARE Discharge Problem: Asthma attack Qualifiers: Asthma severity: severe Asthma persistence: unspecified Qualified Code(s): J45.901 - Unspecified asthma with (acute) exacerbation Instructions: How to Use a Nebulizer (ED), Bronchospasm (ED) Condition: Stable Pt referred to PMD for follow-up: Yes IPMP verified?: No Additional Instructions: Take Medications as prescribed. Follow up with PCP in 3 days Avoid Chemicals that can trigger your asthma Prescriptions: Prednisone 20 mg PO DAILYWM #5 tablet Allergies/Adverse Reactions: Allergies ceftriaxone sodium [From Rocephin] Adverse Reaction (Verified 06/04/18 04:19) ITCHY, SWELLING, BREATHING PROBLEMS Home Medications: Ambulatory Orders Albuterol Sulfate [Proair Hfa] 2 puff IH Q6H PRN #1 puff 04/20/17 Budesonide/Formoterol Fumarate [Symbicort 160-4.5 Mcg Inhaler] 1 puff IH BID Albuterol Sulfate 0.083% Neb [Albuterol 0.083% Neb] 1 vial NEB RTQ6H PRN #60 vial.neb 05/05/18 Amitriptyline HCl 50 mg PO BEDTIME 05/05/18 Prednisone 20 mg PO DAILYWM #5 tablet 06/04/18 Disposition Discussed With: Patient, Family
--- NOTE | 2018-06-04 07:00 | DI ---
EXAM: Two views of the chest. History: Short of breath Comparison: Chest radiograph 05/05/2018, chest CT 04/07/2018 Findings: Heart size is normal. No focal consolidation. No appreciable pleural fluid and no pneumo thorax. No acute osseous abnormalities. Impression: No acute cardiopulmonary process
== END 2018-06-04 06:30 | disposition home or self-care (01) ==
LOC: ED 04:11
DX: J45.901 Unspecified asthma with (acute) exacerbation (principal); F17.210 Nicotine dependence, cigarettes, uncomplicated; I25.10 Atherosclerotic heart disease of native coronary artery without angina pectoris; I25.2 Old myocardial infarction; I10 Essential (primary) hypertension
CPT/HCPCS: 36415; 80053; 82550; 82803; 84145; 84484; 85025; 85379; 93005; 93010; 94640; 96361; 96374; 99283